=== PATIENT | female | born 1955 | race Caucasian/White ===

== ENCOUNTER → 2017-02-03 | Outpatient (CLI) | payer OTHER ==
--- NOTE | 2017-02-03 11:47 | DIAGNOSTIC IMAGING REPORT ---
CHEST 2 VIEWS ROUTINE HISTORY: 61 years-old Female COUGH acute cough. Initial exam. COMPARISON: None available. TECHNIQUE: Frontal and lateral views of the chest. FINDINGS: Cardiac silhouette is moderately enlarged. Left subclavian pacer device is noted with leads overlying the right ventricle and right atrial appendage. There is minimal atherosclerosis of the aorta. No overt pulmonary edema. No pneumothorax, pleural effusion or focal airspace consolidation. There is minimal subsegmental left basilar atelectasis. Surgical clips project over the epigastrium. Orthopedic anchor hardware is seen within the left shoulder. Fusion hardware of the lower cervical spine noted. IMPRESSION: Mild cardiomegaly and minimal left basilar subsegmental atelectasis without acute cardiopulmonary process. The above report was generated using voice recognition software. It may contain grammatical, syntax or spelling errors. Electronically signed by: Omar Rod M.D. 02/03/2017 11:46 AM Dictated Date/Time: 02/03/2017 11:44 AM
== END | disposition home or self-care (01) ==
LOC: C.RAD1850 11:28
PROVIDERS: ATTEND Family Medicine
DX: R05 Cough (principal); I51.7 Cardiomegaly; J98.11 Atelectasis

== ENCOUNTER 2017-04-08 08:06 | Emergency (ER) | payer OTHER ==
[2017-04-08 08:17] VITALS: Ht 165.1 cm
[2017-04-08] MEDS ORDERED: LEVO137T3 PO (08:45)
[2017-04-08] MEDS ORDERED: ATEN-173 PO (08:45)
[2017-04-08] MEDS ORDERED: APIX1TAB3 PO (08:45)
[2017-04-08] MEDS ORDERED: CLBPO15 TOP (08:45)
[2017-04-08] MEDS ORDERED: FRS/40 PO (08:45)
[2017-04-08] MEDS ORDERED: BACL10TA PO (08:45)
[2017-04-08] MEDS ORDERED: FLUO10CA48 PO (08:45)
[2017-04-08] MEDS ORDERED: PANT40TA PO (08:45)
[2017-04-08] MEDS ORDERED: ONDA4TAB46 PO (08:45)
[2017-04-08] MEDS ORDERED: GARL500C5 PO (08:45)
[2017-04-08] MEDS ORDERED: ONDANSETRON INJ 2 MG/ML 2 ML VIAL IV STA (09:06)
[2017-04-08] MEDS ORDERED: MoRPHine SULFATE 4 MG/ML 1 ML CARP\\VIAL IV STA (09:06)
[2017-04-08] MEDS ORDERED: GI COCKTAIL PO STA (09:06)
--- NOTE | 2017-04-08 09:47 | DIAGNOSTIC IMAGING REPORT ---
SINGLE VIEW CHEST CLINICAL HISTORY: Epigastric abdominal pain. FINDINGS: 2 AP, portable, upright chest radiographs are compared to study dated 02/03/2017. The examination is degraded by portable technique, large body habitus, and patient rotation. A 2-lead cardiac pacemaker is unchanged in position. The heart is enlarged and there is atherosclerotic calcification of the thoracic aorta. The pulmonary vasculature is mildly congested. There are trace pleural effusions. Bibasilar atelectasis is observed. No pneumothorax is seen. The skeletal structures are osteopenic. The bony thorax is grossly intact. Anchors are present in the left humeral head. Postoperative change is seen in the lower cervical spine. IMPRESSION: 1. Cardiomegaly and cardiac pacemaker with evidence of mild congestive failure. 2. Trace pleural effusions. Electronically signed by: Johnny Vigil M.D. 04/08/2017 9:45 AM Dictated Date/Time: 04/08/2017 9:44 AM
[2017-04-08 10:02] LABS: BASO % 0.5 %; BASO ABS # 0.03 K/uL (0-0.2); COMPLETE YES; HEMATOCRIT 35.4 % (37-47); IG% 0.3 %; LYMPH % 17.4 %; LYMPH ABS # 1.06 K/uL (1.2-3.4); MEAN CELL VOLUME 83.1 fL (80-100); MEAN CORPUSCULAR HEMOGLOBIN 24.6 pg (25-34); MEAN CORPUSCULAR HGB CONC 29.7 g/dl (32-36); MEAN PLATELET VOLUME 11.1 fL (7.4-10.4); MONO % 11.5 %; NEUT % 67.3 %; PLATELET COUNT 200 K/uL (130-400); RED BLOOD COUNT 4.26 M/uL (4.2-5.4); WHITE BLOOD COUNT 6.08 K/uL (4.8-10.8)
[2017-04-08 10:26] LABS: ALKALINE PHOSPHATASE 89 U/L (45-117); ALT/SGPT 14 U/L (12-78); AST/SGOT 19 U/L (15-37); BLOOD UREA NITROGEN 30 mg/dl (7-18); BUN/CREATININE RATIO 24.1 (10-20); CALCIUM 8.8 mg/dl (8.5-10.1); CARBON DIOXIDE 26 mmol/L (21-32); CHLORIDE 106 mmol/L (98-107); CREATININE 1.23 mg/dl (0.60-1.20); GLUCOSE 84 mg/dl (70-99); POTASSIUM 4.3 mmol/L (3.5-5.1); SODIUM 140 mmol/L (136-145)
--- NOTE | 2017-04-08 10:32 | DIAGNOSTIC IMAGING REPORT ---
ABDOMEN AND PELVIS CT WITHOUT CONTRAST CT DOSE: 1689.62 mGy.cm HISTORY: diffuse and pain TECHNIQUE: Multiaxial CT images of the abdomen and pelvis were performed without contrast. A dose lowering technique was utilized adhering to the principles of ALARA. COMPARISON STUDY: None. FINDINGS: Small right and trace left pleural effusions. Pacemaker wires are noted. No pneumoperitoneum. No pneumatosis. Old, healed left anterior rib fracture. There has been partial resection of the left lateral ninth rib. Skin thickening and moderate body wall edema most pronounced within the left flank. Suture material within the left lateral abdominal wall consistent with old postoperative change. The left kidney is surgically absent. A few small pockets of fluid seen within the left retroperitoneal space at the left nephrectomy bed and at the left omentum. Cholecystectomy. The unenhanced liver, spleen, right adrenal gland are unremarkable. There is mild edema at the socorro hepatis and adjacent to the pancreatic head. Mild right perinephric edema. No right-sided hydronephrosis. A 2.1 cm exophytic hypodense lesion within the upper pole the right kidney. This is indeterminate due to the lack of contrast but does not clearly represent a simple cyst. Moderate bladder wall thickening which is underdistended. The uterus is surgically absent. Mild mesenteric edema. Surgical clips within the retroperitoneum. No retroperitoneal lymphadenopathy. Suboptimal evaluation for bowel pathology due to the lack of intravenous and oral contrast. However, there is no definite bowel wall thickening or obstruction. Colonic diverticulosis. Trace perihepatic ascites. IMPRESSION: 1. Suboptimal evaluation for bowel pathology due to the lack of intravenous and oral contrast. However, there is no definite bowel wall thickening or obstruction. 2. Small right and trace left pleural effusions. There is also diffuse moderate body wall edema most pronounced within the left flank. 3. Postoperative changes consistent with prior left nephrectomy. Small pockets of fluid within the nephrectomy bed and along the left side of the omentum adjacent to the left lateral abdominal wall incision. This favors postoperative change. However, one month abdomen and pelvis CT with intravenous contrast is recommended to ensure resolution and to exclude the possibility of underlying soft tissue nodules.. 4. Mild edema at the socorro hepatis and surrounding the pancreatic head. This may be due to the patient's diffuse edematous state. However, recommend correlation with pancreatic enzymes to exclude the possibility of an underlying pancreatitis. 5. A 2.1 cm exophytic hypodense lesion within the upper pole the right kidney. This is incompletely characterize on this noncontrast study but does not clearly represent a simple cyst. Comparison to old studies or nonemergent renal ultrasound is recommended to exclude the less likely possibility of a renal mass. 6. Moderate bladder wall thickening. This could be due to underdistention. Recommend correlation with urinalysis. Electronically signed by: Lorenzo Dee M.D. 04/08/2017 10:30 AM Dictated Date/Time: 04/08/2017 10:19 AM
[2017-04-08] MEDS ORDERED: FUROSEMIDE 40 MG/4 ML VIAL IV STA (10:37)
[2017-04-08 11:24] VITALS: TEMP 36.7
[2017-04-08] MEDS ORDERED: LIDOCAINE HCL 2% VISC SOLN 20 ML UDC ONE (11:28)
[2017-04-08] MEDS ORDERED: ALUMINUM/MAGNESIUM SUSP 30 ML UDC ONE (11:28)
[2017-04-08] MEDS ORDERED: ONDANSETRON INJ 2 MG/ML 2 ML VIAL ONE (11:29)
[2017-04-08] MEDS ORDERED: MoRPHine SULFATE 4 MG/ML 1 ML CARP\\VIAL ONE (11:29)
[2017-04-08 11:33] LABS: URINE APPEARANCE CLEAR (CLEAR); URINE BILIRUBIN NEG (NEG); URINE COLOR DK YELLOW; URINE EPITHELIAL CELL AUTO >30 /lpf (0-5); URINE NITRITE NEG (NEG); UROBILINOGEN NEG (NEG)
[2017-04-08 11:35] LABS: MANUAL MICROSCOPIC REQUIRED? NO; REVIEW REQ? NO
[2017-04-08] MEDS ORDERED: ONDA4TAB65 PO (13:13)
[2017-04-08 13:30] VITALS: BP 122/71; PULSE 87; O2SAT 98
--- NOTE | 2017-04-08 15:24 | EMERGENCY ROOM VISIT NOTE ---
History Report prepared by Wanda: Rebeca Alcantara Under the Supervision of: Dr. Abiel Shearer D.O. First contact with patient: 08:35 Chief Complaint: ABDOMINAL PAIN Stated Complaint: STOMACH SPASMS Nursing Triage Summary: pt reports she has been having spasms and pain in abd .had echo on thursday. scheduled for colonoscopy on . feels nauseated and having pain, hard time breathing. has pacer. sx started 2 months ago has been getting tests no results yet. has cough also History of Present Illness The patient is a 61 year old female who presents to the Emergency Room with complaints of persistent diffuse abdominal pain that began two months ago. She currently rates her discomfort as an 8/10 in severity. The patient describes her pain as a spasm and cramping pain. She states that when her pain began two months ago she first had developed a cough, followed by nausea, and then her pain began. The patient states that she is scheduled for a scope on the 23 of April. She states that she had an echocardiogram on Thursday. Today, the patient reports increased pain with movement. The patient reports a history of an appendectomy, cholecystectomy, hysterectomy, and nephrectomy. She states that her last bowel movement was this morning. The patient states that she has a history of atrial fibrillation and notes that she has a pacemaker. She states that she is on Eloquis, but denies missing any dosages. The patient denies any previous NE. Today she notes shortness of breath. The patient denies headache, change in vision, fevers, chest pain, vomiting, diarrhea, pain with urination, and melena. Source of History: patient Onset: two months ago Position: abdomen (diffuse) Symptom Intensity: 8/10 Quality: cramping, other (spasm) Timing: other (persistent) Modifying Factors (Worsening): movement Associated Symptoms: + cough, + SOB, + nausea Review of Systems See HPI for pertinent positives & negatives. A total of 10 systems reviewed and were otherwise negative. Past Medical & Surgical Medical Problems: (1) Atrial fibrillation (2) Pacemaker Surgical Problems: (1) H/O: hysterectomy (2) History of appendectomy (3) History of nephrectomy (4) S/P cholecystectomy Family History No pertinent family history stated. Social History Smoking Status: Never Smoker Marital Status: Occupation Status: disabled Current/Historical Medications Scheduled Apixaban (Eliquis), 5 MG PO BID Atenolol (Tenormin), 25 MG PO DAILY Baclofen (Lioresal), 10 MG PO TID Clobetasol Propionate (Clobetasol Propionate), 1 APPLN TOP BID Fluoxetine (Prozac), 10 MG PO DAILY Furosemide (Lasix), 40 MG PO DAILY Garlic (Garlic), 1 CAP PO DAILY Levothyroxine Sodium (Levothyroxine Sodium), 1 TAB PO DAILY Ondansetron Hcl (Zofran), 4 MG PO TID Pantoprazole (Protonix), 40 MG PO DAILY Scheduled PRN Ondansetron Hcl (Zofran), 4 MG PO for Nausea Allergies Coded Allergies: Iodinated Diagnostic Agents (Unverified Allergy, Severe, ANAPHYLAXIS, ) Physical Exam Vital Signs Date Time Temp Pulse Resp B/P (MAP) Pulse Ox O2 Delivery O2 Flow Rate FiO2 04/08/17 13:30 87 18 122/71 98 04/08/17 12:16 89 100 Room Air 04/08/17 11:24 36.7 60 18 125/69 97 Room Air 04/08/17 08:41 60 04/08/17 08:17 36.4 63 18 129/74 98 Room Air Physical Exam GENERAL: Sitting up in bed, morbidly obese, disheveled, holding epigastric region, alert, well nourished, no distress, non-toxic EYE EXAM: normal conjunctiva. OROPHARYNX: no exudate, no erythema, lips, buccal mucosa, and tongue normal and mucous membranes are moist NECK: supple, no nuchal rigidity, no adenopathy, non-tender, unable to appreciate JVD LUNGS: Diminished breath sounds bilaterally. Normal chest wall mechanics HEART: Distant heart sounds, no murmurs, S1 normal and S2 normal ABDOMEN: abdomen soft, acutely tender in the epigastric region tracking down to umbilicus, normo-active bowel sounds, no masses, no rebound or guarding. UPPER EXTREMITIES: upper extremities are grossly normal. LOWER EXTREMITIES: Diffuse pitting edema NEURO EXAM: Normal sensorium, cranial nerves II-XII grossly intact, normal speech, no gross weakness of arms, no gross weakness of legs. Medical Decision & Procedures ER Provider Diagnostic Interpretation: Radiology results as stated below per my review and the radiologist's interpretation: SINGLE VIEW CHEST CLINICAL HISTORY: Epigastric abdominal pain. FINDINGS: 2 AP, portable, upright chest radiographs are compared to study dated 02/03/2017. The examination is degraded by portable technique, large body habitus, and patient rotation. A 2-lead cardiac pacemaker is unchanged in position. The heart is enlarged and there is atherosclerotic calcification of the thoracic aorta. The pulmonary vasculature is mildly congested. There are trace pleural effusions. Bibasilar atelectasis is observed. No pneumothorax is seen. The skeletal structures are osteopenic. The bony thorax is grossly intact. Anchors are present in the left humeral head. Postoperative change is seen in the lower cervical spine. IMPRESSION: 1. Cardiomegaly and cardiac pacemaker with evidence of mild congestive failure. 2. Trace pleural effusions. Electronically signed by: Johnny Vigil M.D. 04/08/2017 9:45 AM Dictated Date/Time: 04/08/2017 9:44 AM ABDOMEN AND PELVIS CT WITHOUT CONTRAST CT DOSE: 1689.62 mGy.cm HISTORY: diffuse and pain TECHNIQUE: Multiaxial CT images of the abdomen and pelvis were performed without contrast. A dose lowering technique was utilized adhering to the principles of ALARA. COMPARISON STUDY: None. FINDINGS: Small right and trace left pleural effusions. Pacemaker wires are noted. No pneumoperitoneum. No pneumatosis. Old, healed left anterior rib fracture. There has been partial resection of the left lateral ninth rib. Skin thickening and moderate body wall edema most pronounced within the left flank. Suture material within the left lateral abdominal wall consistent with old postoperative change. The left kidney is surgically absent. A few small pockets of fluid seen within the left retroperitoneal space at the left nephrectomy bed and at the left omentum. Cholecystectomy. The unenhanced liver, spleen, right adrenal gland are unremarkable. There is mild edema at the socorro hepatis and adjacent to the pancreatic head. Mild right perinephric edema. No right-sided hydronephrosis. A 2.1 cm exophytic hypodense lesion within the upper pole the right kidney. This is indeterminate due to the lack of contrast but does not clearly represent a simple cyst. Moderate bladder wall thickening which is underdistended. The uterus is surgically absent. Mild mesenteric edema. Surgical clips within the retroperitoneum. No retroperitoneal lymphadenopathy. Suboptimal evaluation for bowel pathology due to the lack of intravenous and oral contrast. However, there is no definite bowel wall thickening or obstruction. Colonic diverticulosis. Trace perihepatic ascites. IMPRESSION: 1. Suboptimal evaluation for bowel pathology due to the lack of intravenous and oral contrast. However, there is no definite bowel wall thickening or obstruction. 2. Small right and trace left pleural effusions. There is also diffuse moderate body wall edema most pronounced within the left flank. 3. Postoperative changes consistent with prior left nephrectomy. Small pockets of fluid within the nephrectomy bed and along the left side of the omentum adjacent to the left lateral abdominal wall incision. This favors postoperative change. However, one month abdomen and pelvis CT with intravenous contrast is recommended to ensure resolution and to exclude the possibility of underlying soft tissue nodules.. 4. Mild edema at the socorro hepatis and surrounding the pancreatic head. This may be due to the patient's diffuse edematous state. However, recommend correlation with pancreatic enzymes to exclude the possibility of an underlying pancreatitis. 5. A 2.1 cm exophytic hypodense lesion within the upper pole the right kidney. This is incompletely characterize on this noncontrast study but does not clearly represent a simple cyst. Comparison to old studies or nonemergent renal ultrasound is recommended to exclude the less likely possibility of a renal mass. 6. Moderate bladder wall thickening. This could be due to underdistention. Recommend correlation with urinalysis. Electronically signed by: Lorenzo Dee M.D. 04/08/2017 10:30 AM Dictated Date/Time: 04/08/2017 10:19 AM Laboratory Results 04/08/17 09:42 Red Blood Count 4.26, Mean Corpuscular Volume 83.1, Mean Corpuscular Hemoglobin 24.6, Mean Corpuscular Hemoglobin Concent 29.7, Mean Platelet Volume 11.1, Neutrophils (%) (Auto) 67.3, Lymphocytes (%) (Auto) 17.4, Monocytes (%) (Auto) 11.5, Eosinophils (%) (Auto) 3.0, Basophils (%) (Auto) 0.5, Neutrophils # (Auto ) 4.09, Lymphocytes # (Auto) 1.06, Monocytes # (Auto) 0.70, Eosinophils # (Auto ) 0.18, Basophils # (Auto) 0.03 04/08/17 09:42 Test 04/08/17 09:42 04/08/17 11:05 White Blood Count 6.08 K/uL (4.8-10.8) Red Blood Count 4.26 M/uL (4.2-5.4) Hemoglobin 10.5 g/dL (12.0-16.0) Hematocrit 35.4 % (37-47) Mean Corpuscular Volume 83.1 fL (80-100) Mean Corpuscular Hemoglobin 24.6 pg (25-34) Mean Corpuscular Hemoglobin Concent 29.7 g/dl (32-36) Platelet Count 200 K/uL (130-400) Mean Platelet Volume 11.1 fL (7.4-10.4) Neutrophils (%) (Auto) 67.3 % Lymphocytes (%) (Auto) 17.4 % Monocytes (%) (Auto) 11.5 % Eosinophils (%) (Auto) 3.0 % Basophils (%) (Auto) 0.5 % Neutrophils # (Auto) 4.09 K/uL (1.4-6.5) Lymphocytes # (Auto) 1.06 K/uL (1.2-3.4) Monocytes # (Auto) 0.70 K/uL (0.11-0.59) Eosinophils # (Auto) 0.18 K/uL (0-0.5) Basophils # (Auto) 0.03 K/uL (0-0.2) RDW Standard Deviation 48.9 fL (36.4-46.3) RDW Coefficient of Variation 16.2 % (11.5-14.5) Immature Granulocyte % (Auto) 0.3 % Immature Granulocyte # (Auto) 0.02 K/uL (0.00-0.02) Anion Gap 8.0 mmol/L (3-11) Estimated GFR () 54.1 Estimated GFR (Non- 46.6 BUN/Creatinine Ratio 24.1 (10-20) Calcium Level 8.8 mg/dl (8.5-10.1) Total Bilirubin 1.0 mg/dl (0.2-1) Direct Bilirubin 0.4 mg/dl (0-0.2) Aspartate Amino Transf (AST/SGOT) 19 U/L (15-37) Alanine Aminotransferase (ALT/SGPT) 14 U/L (12-78) Alkaline Phosphatase 89 U/L (45-117) Troponin I < 0.015 ng/ml (0-0.045) Total Protein 6.7 gm/dl (6.4-8.2) Albumin 3.5 gm/dl (3.4-5.0) Lipase 129 U/L (73-393) Urine Color DK YELLOW Urine Appearance CLEAR (CLEAR) Urine pH 5.0 (4.5-7.5) Urine Specific Brea 1.030 (1.000-1.030) Urine Protein 1+ (NEG) Urine Glucose (UA) NEG (NEG) Urine Ketones NEG (NEG) Urine Occult Blood NEG (NEG) Urine Nitrite NEG (NEG) Urine Bilirubin NEG (NEG) Urine Urobilinogen NEG (NEG) Urine Leukocyte Esterase TRACE (NEG) Urine WBC (Auto) 1-5 /hpf (0-5) Urine RBC (Auto) 0-4 /hpf (0-4) Urine Hyaline Casts (Auto) 1-5 /lpf (0-5) Urine Epithelial Cells (Auto) >30 /lpf (0-5) Urine Bacteria (Auto) NEG (NEG) Laboratory results per my review. Medications Administered Medications (Trade) Dose Ordered Sig/Deondre Route Start Time Stop Time Status Last Admin Dose Admin Morphine Sulfate (MoRPHine SULFATE INJ) 4 mg NOW STAT IV 04/08/17 09:06 04/08/17 09:07 DC 04/08/17 11:40 4 MG Ondansetron HCl (Zofran Inj) 4 mg NOW STAT IV 04/08/17 09:06 04/08/17 09:07 DC 04/08/17 11:41 4 MG Miscellaneous Medication (Gi Cocktail) 24 ml NOW STAT PO 04/08/17 09:06 04/08/17 09:07 DC 04/08/17 11:41 24 ML Furosemide (Lasix Inj) 40 mg NOW STAT IV 04/08/17 10:37 04/08/17 10:38 DC 04/08/17 11:42 40 MG ECG Indication: SOB/dyspnea Rate (beats per minute): 60 Rhythm: other (ventricularly paced) Findings: RBBB, left axis deviation Comparison ECG Date: 03/19/17 Change: no significant change ED Course ED COURSE: Vital signs were reviewed and showed normal vitals The patients medical record was reviewed The above diagnostic studies were performed and reviewed. ED treatments and interventions as stated above. 0855: The patient was evaluated in room A3. A complete history and physical examination was performed. 0906: Ordered GI Cocktail 24 ml PO, Zofran Inj 4 mg IV, Morphine Sulfate 4 mg IV. 1037: Ordered Lasix Inj 40 mg IV. 1208: I updated the patient and she is resting comfortably. I updated her at this time. We are going to obtain imaging, labs and EKGs from her PCP's office. 1229: I reevaluated the patient and she is resting comfortably and notes that she is breathing much easier. 1310: Upon reevaluation, the patient is resting comfortably.I discussed my findings with the patient and she understands and agrees with the treatment plan. Based on the patients age, coexisting illnesses, exam and lab findings the decision to treat as an outpatient was made. The patient remained stable while under my care. The patient appeared well at the time of discharge. 1325: I spoke to a nurse from the [facility]. The patient's echo showed no change in EF, grade 3 diastolic dysfunction, and no LV wall motion abnormalities. Medical Decision Differential diagnoses includes but is not limited to gastritis, peptic ulcer disease, GERD, gallbladder disease, pancreatitis, small bowel obstruction, acute coronary syndrome, pericarditis, ischemic bowel, irritable bowel disease, irritable bowel syndrome, appendicitis, diverticulitis, malignancy, hernia, urinary tract infection, torsion, /ectopic (if female), perforation, trauma, infectious. Patient is a 61-year-old female who presents to ER for epigastric abdominal pain which has been present for the past 2 months. She does admits to associated cough. She has had this before in the past. She is followed with GI. She recently just saw a developmental writing instructor. She is new to the area. Reviewed/ discussed recent echo with cardiology's nurse. This appears to be unchanged per the report. On her exam she does have CHF. She does take Lasix but has decreased her dose back to what was normal as was increased by cardiology for a short period of time. CBC all BMP, LFTs, bilirubin, lipase and troponin were all negative. UA was negative. Chest x-ray supports mild pleural effusions. CT of the abdomen and pelvis shows no acute pathology. She does take atenolol inhibitor. I did not explore PEs because of this as she did admit to some mild shortness of breath which has been persistent for a prolonged period of time. This is not consistent with ACS. EKG was unchanged from previous in March. She inability and did not drop her pulse ox. I gave her an extra dose of IV Lasix. Discussed follow-up with her cardiology nurse. Patient was feeling slightly better as her stomach pain improved with the GI cocktail and narcotics. She was discharged with Zofran to follow-up with cardiology and PCP. Discussed with Pt concerning signs and symptoms to watch out for. Pt was instructed to follow up with their PCP and discussed with the patient their option to return to the ED at anytime for persistent or worsening symptoms. The appropriate anticipatory guidance and out-patient management, including indications for return to the emergency department, were explained at length to the patient and understood. Medication Reconcilliation Current Medication List: was personally reviewed by me Blood Pressure Screening Patient's blood pressure: Normal blood pressure Blood pressure disposition: Did not require urgent referral Impression Primary Impression: Epigastric abdominal pain Additional Impression: CHF (congestive heart failure) Scribe Attestation The scribe's documentation has been prepared under my direction and personally reviewed by me in its entirety. I confirm that the note above accurately reflects all work, treatment, procedures, and medical decision making performed by me. Departure Information Dispostion Home / Self-Care Prescriptions Ondansetron Hcl (ZOFRAN) 4 Mg Tab 4 MG PO TID for Nausea, #30 TAB Prov: Abiel Shearer, 04/08/17 Referrals David Monet M.D. (PCP) Forms Call Back Authorization, HOME CARE DOCUMENTATION FORM, IMPORTANT VISIT INFORMATION Patient Instructions Abdominal Pain - [facility], ED CHF General, [facility] Additional Instructions Please follow up with your primary care doctor with in the next 24 hours. Any worsening of your symptoms, please return to the ED immediately. This includes any fevers greater than 100.4, worsening pain, chest pain, shortness breath, persistent nausea, vomiting, unable to eat or drink, or any other concerning signs or symptoms from your standpoint. Please take your normal dose of Lasix twice a day for the next 3 days. Please contact your PCP and developmental writing instructor for additional instructions. This take Zofran as prescribed for nausea. Problem Qualifiers Additional Impression: CHF (congestive heart failure) Congestive heart failure type: unspecified congestive heart failure type Congestive heart failure chronicity: unspecified congestive heart failure chronicity Qualified Codes: I50.9 - Heart failure, unspecified
== END 2017-04-08 13:28 | disposition home or self-care (01) ==
LOC: C.EDB 08:09 → C.EDA 13:28
DX: R10.13 Epigastric pain (principal); I50.9 Heart failure, unspecified; I48.91 Unspecified atrial fibrillation; Z90.5 Acquired absence of kidney; Z90.49 Acquired absence of other specified parts of digestive tract; Z90.710 Acquired absence of both cervix and uterus; Z90.89 Acquired absence of other organs; Z95.0 Presence of cardiac pacemaker; Z79.01 Long term (current) use of anticoagulants

== ENCOUNTER 2019-02-26 07:35 | Inpatient (IN) ==
--- NOTE | 2019-02-26 08:38 | Emergency Department Note ---
ED Visit Note This patient was seen in concert with Dr. Martin and we discussed and agreed upon the history, physical, assessment, and plan. See attending's note for details. . Resident Activity Tracking Resident Involvement: Resident Care Provided Care Provided: Adult ED
--- NOTE | 2019-02-26 08:49 | XRay Report ---
XR chest 1V portable CLINICAL HISTORY: Dyspnea dyspnea COMPARISON STUDY: 04/08/2017 FINDINGS: Mild stable cardiomegaly. Permanent cardiac pacemaker lead. Battery pack has been removed. Chronic pleural and parenchymal changes left base. Lungs otherwise appear clear. IMPRESSION: Mild stable cardiomegaly. No acute process. The above report was generated using voice recognition software. It may contain grammatical, syntax or spelling errors. Electronically signed by: Tan Fernández M.D. 02/26/2019 8:47 AM
[2019-02-26 09:18] LABS: Basophils # (auto) 0.01 K/uL (0-0.2); Basophils % (auto) 0.2 %; Eosinophils # (auto) 0.19 K/uL (0-0.5); Eosinophils % (auto) 3.7 %; Hematocrit (blood only) 31.9 % (37-47); Immature Granulocytes # (auto) 0.01 K/uL (0.00-0.02); Immature Granulocytes % (auto) 0.2 %; Lymphocytes # (auto) 0.73 K/uL (1.2-3.4); Lymphocytes % (auto) 14.4 %; Mean Corpuscular Hemoglobin 25.8 pg (25-34); Mean Corpuscular Hgb Conc 31.3 g/dL (32-36); Mean Corpuscular Volume 82.4 fL (80-100); Mean Platelet Volume 10.3 fL (7.4-10.4); Monocytes # (auto) 0.57 K/uL (0.11-0.59); Monocytes % (auto) 11.2 %; Neutrophils # (auto) 3.57 K/uL (1.4-6.5); Neutrophils % (auto) 70.3 %; Platelet Count 191 K/uL (130-400); RDW Coefficient of Variation 16.3 % (11.5-14.5); RDW Standard Deviation 48.4 fL (36.4-46.3); Red Blood Count 3.87 M/uL (4.2-5.4); White Blood Count 5.08 K/uL (4.8-10.8)
[2019-02-26 09:23] LABS: Base Excess VBG 4.3 mEq/L; HCO3 VBG 29 mmol/L; PCO2 VBG 46 mmHg (38-50); PO2 VBG 27 mmHg; pH VBG 7.42 (7.36-7.41)
[2019-02-26 09:29] LABS: Oxygen Saturation VBG < 60.0 %
[2019-02-26 09:38] LABS: Appearance Urine Clear (Clear); Bilirubin Urine Negative (Negative); Blood Urine Trace (Negative); Color Urine Yellow; Glucose Urine UA Negative (Negative); Ketones Urine Negative (Negative); Leukocyte Esterase Urine Trace (Negative); Nitrite Urine Negative (Negative); Specific Gravity Urine <= 1.005 (1.000-1.030); Urobilinogen Urine Negative (Negative); pH Urine 7.5 (4.5-7.5)
[2019-02-26 09:41] LABS: Alanine Aminotransferase 10 U/L (12-78); Albumin Level 3.6 gm/dl (3.4-5.0); Aspartate Aminotransferase 15 U/L (15-37); BUN Creatinine Ratio 14.1 (10-20); Blood Urea Nitrogen 18 mg/dl (7-18); Calcium 9.1 mg/dl (8.5-10.1); Carbon Dioxide 30 mmol/L (21-32); Chloride 104 mmol/L (98-107); Creatinine Clr Calc Pharmacy 61.1 ml/min; Est GFR (African American) 52.3; Est GFR (Non-African American) 45.1; Glucose 87 mg/dl (70-99); Magnesium 2.4 mg/dl (1.8-2.4); Potassium 3.7 mmol/L (3.5-5.1); Sodium 139 mmol/L (136-145)
[2019-02-26 09:41] LABS: Protein Urine Negative (Negative)
[2019-02-26 09:42] LABS: Sulfosalicylic Acid Urine Negative (Negative)
[2019-02-26 09:45] LABS: Alkaline Phosphatase 103 U/L (45-117); Bilirubin,Total 1.6 mg/dl (0.2-1); Globulin 3.7 gm/dl (2.5-4.0); NT Pro B Type Natriuretic Pept 2990 pg/ml (0-900); Phosphorus 3.6 mg/dl (2.5-4.9); Total Protein 7.3 gm/dl (6.4-8.2); Troponin I < 0.015 ng/ml (0-0.045)
[2019-02-26 09:53] LABS: Bacteria Urine Negative (Negative); Epithelial Cell Urine 0-5 /lpf (0-5); RBC Urine 0-4 /hpf (0-4); WBC Urine 0-5 /hpf (0-5)
[2019-02-26] MEDS ORDERED: BUMETANIDE 1 MG in SYRINGE 0 ML IV SCH (10:00)
--- NOTE | 2019-02-26 10:51 | Emergency Department Note ---
Entered by Maria Elena Alcocer acting as a scribe for History of Present Illness General Chief complaint: Shortness of Breath/Dyspnea Stated complaint: SOB,NAUSEA,DIZZY STOMACH CRAMPS Time Seen by Provider: 02/26/19 07:49 Source: patient History of Present Illness Onset (ago): week(s) (several) Location: chest Pain Consistency: + other (worsening) Maximum Pain Intensity: 6 Quality: + other (shortness of breath) Relieved By: + rest Exacerbated By: + movement Associated symptoms: + nausea/vomiting (positive nausea; negative vomiting ) and + other (positive dizziness; positive turning blue with standing and walking; positive abdominal cramping; positive diarrhea) The patient is a 63 year old female who presents to the Emergency Room with complaints of worsening shortness of breath that began several weeks prior to arrival. The patient states that during this time she has had some dizziness as well. She reports that her symptoms are exacerbated with movement, and relieved with rest. The patient states that this morning was her worst day of symptoms, and states that she has been turning blue with standing and walking around. The patient reports abdominal cramping, nausea, and diarrhea over the past two days. The patient states that she had a pacemaker placed in 2004 and replaced 5 months ago. She states that she had an echo performed several days ago. She denies the use of alcohol and cigarettes. Home Medications Home Medications Medication Instructions Recorded Confirmed Type apixaban 5 mg tablet 5 mg PO BID 12/10/18 02/26/19 History fluoxetine 10 mg capsule 10 mg PO QAM 12/10/18 02/26/19 History levothyroxine 137 mcg tablet 137 mcg PO QAM 12/10/18 02/26/19 History pantoprazole 40 mg tablet,delayed 40 mg PO QAM 12/10/18 02/26/19 History release acetaminophen 500 mg capsule 1,000 mg PO HS PRN cap 12/13/18 02/26/19 History multivitamin tablet 1 tab PO DAILY 12/13/18 02/26/19 History omega-3 fatty acids 1,250 mg 1,250 mg PO QAM 12/13/18 02/26/19 History capsule spironolactone 25 mg tablet 12.5 mg PO QAM tab 12/13/18 02/26/19 History CPAP Machine 02/26/19 02/26/19 History baclofen 10 mg PO HS 02/26/19 02/26/19 History bumetanide 1 mg PO AMPM 02/26/19 02/26/19 History metoprolol succinate [Toprol XL] 25 mg PO QAM 02/26/19 02/26/19 History Allergies Allergy/AdvReac Type Severity Reaction Status Date / Time Iodinated Contrast Media Allergy Severe ANAPHYLAXIS Unverified 02/26/19 08:51 amiodarone Allergy Intermediate increased Unverified 02/26/19 08:51 liver values tramadol Allergy Intermediate Hallucinati Unverified 02/26/19 08:51 ng adhesive tape Allergy Mild Rash Unverified 02/26/19 08:51 Past Med/Surg History Medical History Cancer of left kidney Acid reflux Anemia Arthritis Atrial fibrillation Cholecystitis Congestive heart failure Fibromyalgia History of hysterectomy done in 1983 Hyperlipidemia Pacemaker placed in 2004 Stomach ulcer Surgical History History of nephrectomy, left 2000 (precancerous cyst) History of appendectomy 1984 (right ovary preserved) History of cholecystectomy 1984 History of left knee surgery 2017 History of neck surgery cervical spine C5 and C6, 2003 History of permanent cardiac pacemaker placement placed in 2004, received wireless pacemaker in 2019 History of shoulder surgery L shoulder, 1997, 2000, 2002 S/P arthroscopic knee surgery right knee Family History Father Alcohol abuse Heart disease Hypertension Myocardial infarction Mother Colorectal cancer Gallbladder disease Brother Alcohol abuse Heart disease Hypertension Myocardial infarction Aunt Breast cancer Sister Colorectal cancer Social History Preferred Language: Danish Communication Ability: Effective Visual Impairment: No Limitations Hearing Ability: Normal Used Car [employer] Required: No Beliefs That Will Affect Care: None marital status: Legally Current Living Situation: Family Current Living Situation Comment: lives with friend at her home current occupational status: retired and disabled Feels Safe at Home: Yes Smoking Status: Never smoker Hx Alcohol Use: No Hx Substance Use: No Dental Care, Regularly: Yes Physical Activity Frequency: Other Physical Activity Frequency Comment: walks when she is able, activity is limited by physical condition Seatbelt Use: always Sunscreen Use: Yes Review of Systems See HPI for pertinent positives & negatives. and A total of 10 systems reviewed and were otherwise negative Physical Exam Vital Signs Vital Signs - 24 hr 02/26/19 07:39 02/26/19 07:41 02/26/19 09:19 Temperature 36.4 C L Temperature Source Oral Sepsis Recent Fever Within 48 Hours No Sepsis Action Taken by Nursing No Action Required Pulse Rate 70 Pulse Rate from SpO2 Sensor 60 Pulse Rhythm Regular Pulse Strength Normal Respiratory Rate 20 22 Respiratory Effort / Characteristics Non-Labored Spontaneous Respiratory Depth Normal Normal Respiratory Pattern Regular Regular Blood Pressure 112/75 120/64 Blood Pressure Mean 87 82 Blood Pressure Position Sitting Pulse Oximetry 98 95 Oxygen Delivery Method Room Air Room Air 02/26/19 09:29 02/26/19 09:30 02/26/19 10:01 Temperature Temperature Source Sepsis Recent Fever Within 48 Hours Sepsis Action Taken by Nursing Pulse Rate 64 61 85 Pulse Rate from SpO2 Sensor 62 61 85 Pulse Rhythm Pulse Strength Respiratory Rate 16 17 22 Respiratory Effort / Characteristics Respiratory Depth Respiratory Pattern Blood Pressure Blood Pressure Mean Blood Pressure Position Pulse Oximetry 95 95 96 Oxygen Delivery Method 02/26/19 10:10 02/26/19 10:30 Temperature Temperature Source Sepsis Recent Fever Within 48 Hours Sepsis Action Taken by Nursing Pulse Rate 61 62 Pulse Rate from SpO2 Sensor 61 62 Pulse Rhythm Pulse Strength Respiratory Rate 17 21 Respiratory Effort / Characteristics Respiratory Depth Respiratory Pattern Blood Pressure 112/72 108/68 Blood Pressure Mean 85 81 Blood Pressure Position Pulse Oximetry 97 96 Oxygen Delivery Method GENERAL: Awake, alert, chronically ill-appearing, in no distress HENT: Normocephalic, atraumatic. Oropharynx with dry mucous membranes. Scant perioral cyanosis. EYES: Normal conjunctiva. Sclera non-icteric. EOMI. No nystamgus. PEARRL. NECK: Supple. No nuchal rigidity. FROM. Mild JVD. RESPIRATORY: Diminished breath sounds at the bases otherwise clear. CARDIAC: Regular rate, normal rhythm. Extremities warm and well perfused. Pulses equal. ABDOMEN: Soft, non-distended. No tenderness to palpation. No rebound or guarding. No masses. RECTAL: Deferred. MUSCULOSKELETAL: Chest examination reveals no tenderness. The back is symmetri macy on inspection without obvious abnormality. There is no CVA tenderness to palpation. No joint edema. LOWER EXTREMITIES: Calves are equal size bilaterally and non-tender. 2+ bilateral lower extremity edema. No discoloration. NEURO: Normal sensorium. No sensory or motor deficits noted. SKIN: No rash or jaundice noted. Course 0756: The patient was seen and evaluated by resident Maximino Ulrich. 0850: Past medical records reviewed. The patient was evaluated in room B8. A complete history and physical exam was performed. 1018: The resident updated the patient on the treatment plan and the need for further evaluation. 1030: The resident discussed the case with Dr. Cueto-[facility] Hopsitalist who accepts the patient for further evaluation. 1031: I talked to [employer] who state that the patient's pacemaker is functioning properly. Administered Medications Acetaminophen (Tylenol) 650 mg PO Q4H PRN PRN Reason: pain/fever Stop: 03/28/19 11:55 Last Admin: 02/26/19 23:05 Dose: 650 mg Documented by: [id number] Admin: 02/26/19 15:32 Dose: 650 mg Documented by: [id number] Apixaban (Eliquis) 5 mg PO BID KARINA Stop: 03/28/19 20:59 Last Admin: 02/26/19 19:50 Dose: 5 mg Documented by: [id number] Baclofen (Lioresal) 10 mg PO HS KARINA Stop: 03/28/19 20:59 Last Admin: 02/26/19 19:51 Dose: 10 mg Documented by: [id number] Bumetanide 1 mg/ Syringe 4 mls @ 4 mls/min IV DAILY@0900,1700 KARINA Stop: 03/28/19 16:59 Last Admin: 02/26/19 15:32 Dose: 4 mls/min Documented by: [id number] Discontinued Medications Diphenhydramine HCl (Benadryl) 25 mg IV NOW STA Stop: 02/26/19 19:43 Last Admin: 02/26/19 19:55 Dose: 25 mg Documented by: [id number] Bumetanide 1 mg/ Syringe 4 mls @ 4 mls/min IV NOW KARINA Stop: 03/28/19 09:59 Last Admin: 02/26/19 11:22 Dose: 4 mls/min Documented by: [id number] Medical Decision Making Differential Diagnosis Differential diagnoses includes but is not limited to pneumonia, bronchitis, COPD/Asthma exacerbation, pneumothorax, pulmonary embolism, congestive heart failure, acute coronary syndrome Medical Records Attestation: I reviewed the patient's medical records. Home Medications Current Medication List: was personally reviewed by me Laboratory Data Attestation: I reviewed the patient's lab results. Result diagrams: 02/26/19 09:01 02/26/19 09:01 Lab Results 02/26/19 02/26/19 02/26/19 Range/Units 09:01 09:01 09:01 WBC 5.08 (4.8-10.8) K/uL RBC 3.87 L (4.2-5.4) M/uL Hgb 10.0 L (12.0-16.0) g/dL Hct 31.9 L (37-47) % MCV 82.4 (80-100) fL MCH 25.8 (25-34) pg MCHC 31.3 L (32-36) g/dL RDW Std Deviation 48.4 H (36.4-46.3) fL RDW Coeff of Sudheer 16.3 H (11.5-14.5) % Plt Count 191 (130-400) K/uL MPV 10.3 (7.4-10.4) fL Immature Gran % (Auto) 0.2 % Neut % (Auto) 70.3 % Lymph % (Auto) 14.4 % Piatt % (Auto) 11.2 % Eos % (Auto) 3.7 % Baso % (Auto) 0.2 % Immature Gran # (Auto) 0.01 (0.00-0.02) K/uL Neut # (Auto) 3.57 (1.4-6.5) K/uL Lymph # (Auto) 0.73 L (1.2-3.4) K/uL Piatt # (Auto) 0.57 (0.11-0.59) K/uL Eos # (Auto) 0.19 (0-0.5) K/uL Baso # (Auto) 0.01 (0-0.2) K/uL VBG pH 7.42 H (7.36-7.41) VBG pCO2 46 (38-50) mmHg VBG pO2 27 mmHg VBG HCO3 29 mmol/L VBG O2 Saturation < 60.0 % VBG Base Excess 4.3 mEq/L Carboxyhemoglobin % THgb Methemoglobin (0.0-1.5) % Barometric Pressure 734.3 mm/Hg Sodium 139 (136-145) mmol/L Potassium 3.7 (3.5-5.1) mmol/L Chloride 104 (98-107) mmol/L Carbon Dioxide 30 (21-32) mmol/L Anion Gap 5.0 (3-11) BUN 18 (7-18) mg/dl Creatinine 1.25 H (0.6-1.2) mg/dl Est Cr Clr Drug Dosing 61.1 ml/min Est GFR ( Amer) 52.3 Est GFR (Non-Af Amer) 45.1 BUN/Creatinine Ratio 14.1 (10-20) Glucose 87 (70-99) mg/dl Calcium 9.1 (8.5-10.1) mg/dl Phosphorus 3.6 (2.5-4.9) mg/dl Magnesium 2.4 (1.8-2.4) mg/dl Total Bilirubin 1.6 H (0.2-1) mg/dl AST 15 (15-37) U/L ALT 10 L (12-78) U/L Alkaline Phosphatase 103 (45-117) U/L Troponin I < 0.015 (0-0.045) ng/ml NT-Pro-B Natriuret Pep 2990 H (0-900) pg/ml Total Protein 7.3 (6.4-8.2) gm/dl Albumin 3.6 (3.4-5.0) gm/dl Globulin 3.7 (2.5-4.0) gm/dl Albumin/Globulin Ratio 1.0 (0.9-2) Urine Color Urine Appearance (Clear) Urine pH (4.5-7.5) Ur Specific Warren (1.000-1.030) Urine Protein (Negative) Urine Glucose (UA) (Negative) Urine Ketones (Negative) Urine Blood (Negative) Urine Nitrite (Negative) Urine Bilirubin (Negative) Urine Urobilinogen (Negative) Ur Leukocyte Esterase (Negative) Urine RBC (0-4) /hpf Urine WBC (0-5) /hpf Ur Epithelial Cells (0-5) /lpf Urine Bacteria (Negative) 02/26/19 02/26/19 02/26/19 Range/Units 09:21 10:20 10:20 WBC (4.8-10.8) K/uL RBC (4.2-5.4) M/uL Hgb (12.0-16.0) g/dL Hct (37-47) % MCV (80-100) fL MCH (25-34) pg MCHC (32-36) g/dL RDW Std Deviation (36.4-46.3) fL RDW Coeff of Sudheer (11.5-14.5) % Plt Count (130-400) K/uL MPV (7.4-10.4) fL Immature Gran % (Auto) % Neut % (Auto) % Lymph % (Auto) % Piatt % (Auto) % Eos % (Auto) % Baso % (Auto) % Immature Gran # (Auto) (0.00-0.02) K/uL Neut # (Auto) (1.4-6.5) K/uL Lymph # (Auto) (1.2-3.4) K/uL Piatt # (Auto) (0.11-0.59) K/uL Eos # (Auto) (0-0.5) K/uL Baso # (Auto) (0-0.2) K/uL VBG pH (7.36-7.41) VBG pCO2 (38-50) mmHg VBG pO2 mmHg VBG HCO3 mmol/L VBG O2 Saturation % VBG Base Excess mEq/L Carboxyhemoglobin 0.2 % THgb Methemoglobin 3.1 H (0.0-1.5) % Barometric Pressure mm/Hg Sodium (136-145) mmol/L Potassium (3.5-5.1) mmol/L Chloride (98-107) mmol/L Carbon Dioxide (21-32) mmol/L Anion Gap (3-11) BUN (7-18) mg/dl Creatinine (0.6-1.2) mg/dl Est Cr Clr Drug Dosing ml/min Est GFR ( Amer) Est GFR (Non-Af Amer) BUN/Creatinine Ratio (10-20) Glucose (70-99) mg/dl Calcium (8.5-10.1) mg/dl Phosphorus (2.5-4.9) mg/dl Magnesium (1.8-2.4) mg/dl Total Bilirubin (0.2-1) mg/dl AST (15-37) U/L ALT (12-78) U/L Alkaline Phosphatase (45-117) U/L Troponin I (0-0.045) ng/ml NT-Pro-B Natriuret Pep (0-900) pg/ml Total Protein (6.4-8.2) gm/dl Albumin (3.4-5.0) gm/dl Globulin (2.5-4.0) gm/dl Albumin/Globulin Ratio (0.9-2) Urine Color Yellow Urine Appearance Clear (Clear) Urine pH 7.5 (4.5-7.5) Ur Specific Warren <= 1.005 (1.000-1.030) Urine Protein Negative (Negative) Urine Glucose (UA) Negative (Negative) Urine Ketones Negative (Negative) Urine Blood Trace H (Negative) Urine Nitrite Negative (Negative) Urine Bilirubin Negative (Negative) Urine Urobilinogen Negative (Negative) Ur Leukocyte Esterase Trace H (Negative) Urine RBC 0-4 (0-4) /hpf Urine WBC 0-5 (0-5) /hpf Ur Epithelial Cells 0-5 (0-5) /lpf Urine Bacteria Negative (Negative) 02/26/19 Range/Units 10:20 WBC (4.8-10.8) K/uL RBC (4.2-5.4) M/uL Hgb (12.0-16.0) g/dL Hct (37-47) % MCV (80-100) fL MCH (25-34) pg MCHC (32-36) g/dL RDW Std Deviation (36.4-46.3) fL RDW Coeff of Sudheer (11.5-14.5) % Plt Count (130-400) K/uL MPV (7.4-10.4) fL Immature Gran % (Auto) % Neut % (Auto) % Lymph % (Auto) % Piatt % (Auto) % Eos % (Auto) % Baso % (Auto) % Immature Gran # (Auto) (0.00-0.02) K/uL Neut # (Auto) (1.4-6.5) K/uL Lymph # (Auto) (1.2-3.4) K/uL Piatt # (Auto) (0.11-0.59) K/uL Eos # (Auto) (0-0.5) K/uL Baso # (Auto) (0-0.2) K/uL VBG pH (7.36-7.41) VBG pCO2 (38-50) mmHg VBG pO2 mmHg VBG HCO3 mmol/L VBG O2 Saturation % VBG Base Excess mEq/L Carboxyhemoglobin Cancelled % THgb Methemoglobin (0.0-1.5) % Barometric Pressure mm/Hg Sodium (136-145) mmol/L Potassium (3.5-5.1) mmol/L Chloride (98-107) mmol/L Carbon Dioxide (21-32) mmol/L Anion Gap (3-11) BUN (7-18) mg/dl Creatinine (0.6-1.2) mg/dl Est Cr Clr Drug Dosing ml/min Est GFR ( Amer) Est GFR (Non-Af Amer) BUN/Creatinine Ratio (10-20) Glucose (70-99) mg/dl Calcium (8.5-10.1) mg/dl Phosphorus (2.5-4.9) mg/dl Magnesium (1.8-2.4) mg/dl Total Bilirubin (0.2-1) mg/dl AST (15-37) U/L ALT (12-78) U/L Alkaline Phosphatase (45-117) U/L Troponin I (0-0.045) ng/ml NT-Pro-B Natriuret Pep (0-900) pg/ml Total Protein (6.4-8.2) gm/dl Albumin (3.4-5.0) gm/dl Globulin (2.5-4.0) gm/dl Albumin/Globulin Ratio (0.9-2) Urine Color Urine Appearance (Clear) Urine pH (4.5-7.5) Ur Specific Warren (1.000-1.030) Urine Protein (Negative) Urine Glucose (UA) (Negative) Urine Ketones (Negative) Urine Blood (Negative) Urine Nitrite (Negative) Urine Bilirubin (Negative) Urine Urobilinogen (Negative) Ur Leukocyte Esterase (Negative) Urine RBC (0-4) /hpf Urine WBC (0-5) /hpf Ur Epithelial Cells (0-5) /lpf Urine Bacteria (Negative) Imaging Data Radiologist's Impression: Radiology results as stated below per my review and the radiologist's interpretation: XR chest 1V portable CLINICAL HISTORY: Dyspnea dyspnea COMPARISON STUDY: 04/08/2017 FINDINGS: Mild stable cardiomegaly. Permanent cardiac pacemaker lead. Battery pack has been removed. Chronic pleural and parenchymal changes left base. Lungs otherwise appear clear. IMPRESSION: Mild stable cardiomegaly. No acute process. The above report was generated using voice recognition software. It may contain grammatical, syntax or spelling errors. Electronically signed by: Tan Fernández M.D. 02/26/2019 8:47 AM ECG Data Attestation: I personally reviewed and interpreted this ECG as follows: Indication: SOB/dyspnea Rate (beats per minute): 66 Rhythm: other (v-paced) Findings: no PAC, no PVC, no ST depression, no ST elevation, no acute ischemic change and no ectopy Blood Pressure Blood Pressure Findings: Normal blood pressure MDM Narrative The patient is a pleasant 63-year-old woman with a past medical history of A. fib on Eliquis, CHF on Bumex who presents emergency department with worsening shortness of breath with cyanosis of her lips and fingers intermittently that is provoked by lying supine as well as with exertion per hpi. On arrival patient is chronically ill-appearing but no acute distress, afebrile stable vital signs. On exam the patient exhibits mild perioral cyanosis although her oxygen saturation is 95% on room air. She has diminished breath sounds at the bases but is otherwise clear. She has 2+ bilateral lower extremity edema which she r eports is improved for her. EKG demonstrates paced rhythm without overt acute ischemia. Chest x-ray demonstrates cardiomegaly with chronic pleural and parenchymal changes of the left lung base. WBC within normal limits. H/H 10/31.9 within prior range of values. Platelets within normal limits. VBG unremarkable with CO2 within normal limits. Carboxyhemoglobin and methemoglobin ordered and pending given the patient's perioral cyanosis but with normal O2 saturation. Chemistry without acidosis. Creatinine 1.25 within prior range of values. LFTs unremarkable. Troponin negative/undetectable. BNP 2900 without prior values for comparison. UA without infection. Certainly given the patien t's exam and elevated BNP symptoms likely have a component of volume overload. Patient was ordered for IV Bumex. Given her symptoms of exertional dyspnea and orthopnea it reasonable to admit the patient for further management. Resident, Dr. Maximino Ulrich, discussed the case with Dr. Cueto, [facility] [place] who evaluate the patient for admission. Of note, subsequent methemoglobin resulting at 3.1 which would explain the patient's perioral cyanosis. However unclear trigger for this episode. Patient denies any new medications or supplements. She denies any recent exposures. Admitting team updated and aware. Given unclear etiology to her elevated methemoglobinemia and that she is clinically stable, no indication for emergent antidote therapy as removal of offending agent would be appropriate first step. Will defer further management of this to admitting team who will consult hematology. Carboxyhemoglobin wnl. This patient was managed with the assistance of resident, Dr. Maximino Ulrich. I discussed the case with the resident, examined the patient, and confirm the findings and plan as documented in this note. Impression & Plan Dyspnea on exertion, Orthopnea, Perioral cyanosis, Methemoglobinemia Discharge Plan Visit Data *Final* Discharge Date/Time: 02/26/19 11:31 Chief Complaint: Shortness of Breath/Dyspnea Stated Complaint: SOB,NAUSEA,DIZZY STOMACH CRAMPS ED Provider: Omar Martin ED Midlevel Provider: Maximino Ulrich Discharge Problem: Dyspnea on exertion, Orthopnea, Perioral cyanosis, Methemoglobinemia Patient Disposition: Admitted As Inpatient Discharge Instructions Interventions: ED Discharge Assessment Last Done: 02/26/19 11:31 The scribe's documentation has been prepared under my direction and personally reviewed by me in its entirety. I confirm that the note above accurately reflects all work, treatment, procedures, and medical decision making performed by me.
--- NOTE | 2019-02-26 11:10 | History & Physical Report ---
Date of Service February 26, 2019 Assessment & Plan (1) Dyspnea due to congestive heart failure: Present on Admission?: Yes (2) Hypertension: Continue home meds. (3) Hyperlipidemia: (4) Fibromyalgia: (5) Acid reflux: Continue PPI. (6) Hypothyroidism: Continue Synthroid. (7) Atrial fibrillation: Continue with beta-blockers and anticoagulation with Eliquis. (8) AIDE on CPAP: Continue with CPAP per home settings (9) Valvular heart disease: (10) CHF (congestive heart failure): Present on Admission?: Yes (11) Pacemaker: Will change oral Bumex to IV Bumex twice daily. Continue Aldactone. Consult cardiology. Daily weights. Strict intake output. Monitor on telemetry floor. Continue home medications. Home medication list as reconciled. Continue with Eliquis for anticoagulation. CODE STATUS full code. History of Present Illness Chief Complaint: sob Primary Care Provider: Ryanne Pugh MD The patient is 63-year-old female who presented to the ER with complaints of increasing shortness of breath for last 4 days. Her dyspnea gets worse on exertion. She denies any chest pain. She has chronic swelling of the leg, and is on oral Bumex and spironolactone. The patient has also noticed that her lips occasionally gets blue. She is being followed by her clerical coordinator as outpatient and had echocardiogram done on Thursday which showed mitral regurgitation and tricuspid regurgitation. She also has history of sleep apnea and is on CPAP. The further work-up done in the ER showed that patient has acute on chronic con gestive heart failure , BNP is high at 2990; the patient will be admitted for further evaluation and management. Allergies Allergy/AdvReac Type Severity Reaction Status Date / Time Iodinated Contrast Media Allergy Severe ANAPHYLAXIS Unverified 02/26/19 08:51 amiodarone Allergy Intermediate increased Unverified 02/26/19 08:51 liver values tramadol Allergy Intermediate Hallucinati Unverified 02/26/19 08:51 ng adhesive tape Allergy Mild Rash Unverified 02/26/19 08:51 Home Medications Home Medications Medication Instructions Recorded Confirmed Type apixaban 5 mg tablet 5 mg PO BID 12/10/18 02/26/19 History fluoxetine 10 mg capsule 10 mg PO QAM 12/10/18 02/26/19 History levothyroxine 137 mcg tablet 137 mcg PO QAM 12/10/18 02/26/19 History pantoprazole 40 mg tablet,delayed 40 mg PO QAM 12/10/18 02/26/19 History release acetaminophen 500 mg capsule 1,000 mg PO HS PRN cap 12/13/18 02/26/19 History multivitamin tablet 1 tab PO DAILY 12/13/18 02/26/19 History omega-3 fatty acids 1,250 mg 1,250 mg PO QAM 12/13/18 02/26/19 History capsule spironolactone 25 mg tablet 12.5 mg PO QAM tab 12/13/18 02/26/19 History CPAP Machine 02/26/19 02/26/19 History baclofen 10 mg PO HS 02/26/19 02/26/19 History bumetanide 1 mg PO AMPM 02/26/19 02/26/19 History metoprolol succinate [Toprol XL] 25 mg PO QAM 02/26/19 02/26/19 History Past Med/Surg History Medical History Cancer of left kidney Acid reflux Anemia Arthritis Atrial fibrillation Cholecystitis Congestive heart failure Fibromyalgia History of hysterectomy done in 1983 Hyperlipidemia Pacemaker placed in 2004 Stomach ulcer Surgical History History of nephrectomy, left 2000 (precancerous cyst) History of appendectomy 1984 (right ovary preserved) History of cholecystectomy 1984 History of left knee surgery 2017 History of neck surgery cervical spine C5 and C6, 2003 History of permanent cardiac pacemaker placement placed in 2004, received wireless pacemaker in 2019 History of shoulder surgery L shoulder, 1997, 2000, 2002 S/P arthroscopic knee surgery right knee Family History Father Alcohol abuse Heart disease Hypertension Myocardial infarction Mother Colorectal cancer Gallbladder disease Brother Alcohol abuse Heart disease Hypertension Myocardial infarction Aunt Breast cancer Sister Colorectal cancer Social History Preferred Language: Slovak Visual Impairment: No Limitations Hearing Ability: Normal marital status: Legally Current Living Situation: Other Current Living Situation Comment: lives with friend at her home current occupational status: retired and disabled Feels Safe at Home: Yes Smoking Status: Never smoker Hx Alcohol Use: No Hx Substance Use: No Dental Care, Regularly: Yes Physical Activity Frequency: Other Physical Activity Frequency Comment: walks when she is able, activity is limited by physical condition Seatbelt Use: always Sunscreen Use: Yes Review of Systems Review of Systems: All systems reviewed & are unremarkable except as noted in HPI & below Respiratory: + cough, + chest congestion, + dyspnea and + dyspnea on exertion Cardiovascular: + dyspnea, + dyspnea at rest and + edema Physical Exam Physical Exam: GENERAL : No acute distress, obese female, EYES: No icterus, gaze conjugate NOSE: No evidence of epistaxis MOUTH: No lesions or candidiasis, mucosa moist NECK: Supple LUNGS: Decreased breath sound at bases HEART: Irregularly regular, systolic murmur present ABDOMEN: Soft, NT, ND, BS Present EXTREMITIES: Bilateral edema of the legs noted appears to be chronic,, pedal pulses intact NEURO: A&OX3 Results & Data Vital Signs (Past 12 Hours) Vital Signs Temp Pulse Resp BP Pulse Ox 02/26/19 10:01 85 22 96 02/26/19 09:30 61 17 95 02/26/19 09:29 64 16 95 02/26/19 09:19 22 120/64 95 02/26/19 07:39 97.5 F L 70 20 112/75 98 Laboratory Results 02/26/19 09:01 02/26/19 09:01 02/26/19 02/26/19 02/26/19 Range/Units 10:20 10:20 10:20 WBC (4.8-10.8) K/uL RBC (4.2-5.4) M/uL Hgb (12.0-16.0) g/dL Hct (37-47) % MCV (80-100) fL MCH (25-34) pg MCHC (32-36) g/dL RDW Std Deviation (36.4-46.3) fL RDW Coeff of Sudheer (11.5-14.5) % Plt Count (130-400) K/uL MPV (7.4-10.4) fL Immature Gran % (Auto) % Neut % (Auto) % Lymph % (Auto) % [place] % (Auto) % Eos % (Auto) % Baso % (Auto) % Immature Gran # (Auto) (0.00-0.02) K/uL Neut # (Auto) (1.4-6.5) K/uL Lymph # (Auto) (1.2-3.4) K/uL [place] # (Auto) (0.11-0.59) K/uL Eos # (Auto) (0-0.5) K/uL Baso # (Auto) (0-0.2) K/uL VBG pH (7.36-7.41) VBG pCO2 (38-50) mmHg VBG pO2 mmHg VBG HCO3 mmol/L VBG O2 Saturation % VBG Base Excess mEq/L Carboxyhemoglobin Cancelled 0.2 % THgb Methemoglobin 3.1 H (0.0-1.5) % Barometric Pressure mm/Hg Sodium (136-145) mmol/L Potassium (3.5-5.1) mmol/L Chloride (98-107) mmol/L Carbon Dioxide (21-32) mmol/L Anion Gap (3-11) BUN (7-18) mg/dl Creatinine (0.6-1.2) mg/dl Est Cr Clr Drug Dosing ml/min Est GFR ( Amer) Est GFR (Non-Af Amer) BUN/Creatinine Ratio (10-20) Glucose (70-99) mg/dl Calcium (8.5-10.1) mg/dl Phosphorus (2.5-4.9) mg/dl Magnesium (1.8-2.4) mg/dl Total Bilirubin (0.2-1) mg/dl AST (15-37) U/L ALT (12-78) U/L Alkaline Phosphatase (45-117) U/L Troponin I (0-0.045) ng/ml NT-Pro-B Natriuret Pep (0-900) pg/ml Total Protein (6.4-8.2) gm/dl Albumin (3.4-5.0) gm/dl Globulin (2.5-4.0) gm/dl Albumin/Globulin Ratio (0.9-2) Urine Color Urine Appearance (Clear) Urine pH (4.5-7.5) Ur Specific [place] (1.000-1.030) Urine Protein (Negative) Urine Glucose (UA) (Negative) Urine Ketones (Negative) Urine Blood (Negative) Urine Nitrite (Negative) Urine Bilirubin (Negative) Urine Urobilinogen (Negative) Ur Leukocyte Esterase (Negative) Urine RBC (0-4) /hpf Urine WBC (0-5) /hpf Ur Epithelial Cells (0-5) /lpf Urine Bacteria (Negative) 02/26/19 02/26/19 02/26/19 Range/Units 09:21 09:01 09:01 WBC (4.8-10.8) K/uL RBC (4.2-5.4) M/uL Hgb (12.0-16.0) g/dL Hct (37-47) % MCV (80-100) fL MCH (25-34) pg MCHC (32-36) g/dL RDW Std Deviation (36.4-46.3) fL RDW Coeff of Sudheer (11.5-14.5) % Plt Count (130-400) K/uL MPV (7.4-10.4) fL Immature Gran % (Auto) % Neut % (Auto) % Lymph % (Auto) % [place] % (Auto) % Eos % (Auto) % Baso % (Auto) % Immature Gran # (Auto) (0.00-0.02) K/uL Neut # (Auto) (1.4-6.5) K/uL Lymph # (Auto) (1.2-3.4) K/uL [place] # (Auto) (0.11-0.59) K/uL Eos # (Auto) (0-0.5) K/uL Baso # (Auto) (0-0.2) K/uL VBG pH 7.42 H (7.36-7.41) VBG pCO2 46 (38-50) mmHg VBG pO2 27 mmHg VBG HCO3 29 mmol/L VBG O2 Saturation < 60.0 % VBG Base Excess 4.3 mEq/L Carboxyhemoglobin % THgb Methemoglobin (0.0-1.5) % Barometric Pressure 734.3 mm/Hg Sodium 139 (136-145) mmol/L Potassium 3.7 (3.5-5.1) mmol/L Chloride 104 (98-107) mmol/L Carbon Dioxide 30 (21-32) mmol/L Anion Gap 5.0 (3-11) BUN 18 (7-18) mg/dl Creatinine 1.25 H (0.6-1.2) mg/dl Est Cr Clr Drug Dosing 61.1 ml/min Est GFR ( Amer) 52.3 Est GFR (Non-Af Amer) 45.1 BUN/Creatinine Ratio 14.1 (10-20) Glucose 87 (70-99) mg/dl Calcium 9.1 (8.5-10.1) mg/dl Phosphorus 3.6 (2.5-4.9) mg/dl Magnesium 2.4 (1.8-2.4) mg/dl Total Bilirubin 1.6 H (0.2-1) mg/dl AST 15 (15-37) U/L ALT 10 L (12-78) U/L Alkaline Phosphatase 103 (45-117) U/L Troponin I < 0.015 (0-0.045) ng/ml NT-Pro-B Natriuret Pep 2990 H (0-900) pg/ml Total Protein 7.3 (6.4-8.2) gm/dl Albumin 3.6 (3.4-5.0) gm/dl Globulin 3.7 (2.5-4.0) gm/dl Albumin/Globulin Ratio 1.0 (0.9-2) Urine Color Yellow Urine Appearance Clear (Clear) Urine pH 7.5 (4.5-7.5) Ur Specific [place] <= 1.005 (1.000-1.030) Urine Protein Negative (Negative) Urine Glucose (UA) Negative (Negative) Urine Ketones Negative (Negative) Urine Blood Trace H (Negative) Urine Nitrite Negative (Negative) Urine Bilirubin Negative (Negative) Urine Urobilinogen Negative (Negative) Ur Leukocyte Esterase Trace H (Negative) Urine RBC 0-4 (0-4) /hpf Urine WBC 0-5 (0-5) /hpf Ur Epithelial Cells 0-5 (0-5) /lpf Urine Bacteria Negative (Negative) 02/26/19 Range/Units 09:01 WBC 5.08 (4.8-10.8) K/uL RBC 3.87 L (4.2-5.4) M/uL Hgb 10.0 L (12.0-16.0) g/dL Hct 31.9 L (37-47) % MCV 82.4 (80-100) fL MCH 25.8 (25-34) pg MCHC 31.3 L (32-36) g/dL RDW Std Deviation 48.4 H (36.4-46.3) fL RDW Coeff of Sudheer 16.3 H (11.5-14.5) % Plt Count 191 (130-400) K/uL MPV 10.3 (7.4-10.4) fL Immature Gran % (Auto) 0.2 % Neut % (Auto) 70.3 % Lymph % (Auto) 14.4 % [place] % (Auto) 11.2 % Eos % (Auto) 3.7 % Baso % (Auto) 0.2 % Immature Gran # (Auto) 0.01 (0.00-0.02) K/uL Neut # (Auto) 3.57 (1.4-6.5) K/uL Lymph # (Auto) 0.73 L (1.2-3.4) K/uL [place] # (Auto) 0.57 (0.11-0.59) K/uL Eos # (Auto) 0.19 (0-0.5) K/uL Baso # (Auto) 0.01 (0-0.2) K/uL VBG pH (7.36-7.41) VBG pCO2 (38-50) mmHg VBG pO2 mmHg VBG HCO3 mmol/L VBG O2 Saturation % VBG Base Excess mEq/L Carboxyhemoglobin % THgb Methemoglobin (0.0-1.5) % Barometric Pressure mm/Hg Sodium (136-145) mmol/L Potassium (3.5-5.1) mmol/L Chloride (98-107) mmol/L Carbon Dioxide (21-32) mmol/L Anion Gap (3-11) BUN (7-18) mg/dl Creatinine (0.6-1.2) mg/dl Est Cr Clr Drug Dosing ml/min Est GFR ( Amer) Est GFR (Non-Af Amer) BUN/Creatinine Ratio (10-20) Glucose (70-99) mg/dl Calcium (8.5-10.1) mg/dl Phosphorus (2.5-4.9) mg/dl Magnesium (1.8-2.4) mg/dl Total Bilirubin (0.2-1) mg/dl AST (15-37) U/L ALT (12-78) U/L Alkaline Phosphatase (45-117) U/L Troponin I (0-0.045) ng/ml NT-Pro-B Natriuret Pep (0-900) pg/ml Total Protein (6.4-8.2) gm/dl Albumin (3.4-5.0) gm/dl Globulin (2.5-4.0) gm/dl Albumin/Globulin Ratio (0.9-2) Urine Color Urine Appearance (Clear) Urine pH (4.5-7.5) Ur Specific [place] (1.000-1.030) Urine Protein (Negative) Urine Glucose (UA) (Negative) Urine Ketones (Negative) Urine Blood (Negative) Urine Nitrite (Negative) Urine Bilirubin (Negative) Urine Urobilinogen (Negative) Ur Leukocyte Esterase (Negative) Urine RBC (0-4) /hpf Urine WBC (0-5) /hpf Ur Epithelial Cells (0-5) /lpf Urine Bacteria (Negative) Diagnostic Findings XR chest 1V portable CLINICAL HISTORY: Dyspnea dyspnea COMPARISON STUDY: 04/08/2017 FINDINGS: Mild stable cardiomegaly. Permanent cardiac pacemaker lead. Battery pack has been removed. Chronic pleural and parenchymal changes left base. Lungs otherwise appear clear. IMPRESSION: Mild stable cardiomegaly. No acute process. Code Status & VTE Plan Code Status Full code VTE Prophylaxis Plan VTE Prophylaxis will be ordered: Yes PG Care Time/CCT Total # of Minutes Spent Total Time Spent with Patient: Total time spent is greater than 50% in coordi nation of care (as documented) at patient's floor/unit and/or counseling patient: (1) Atrial fibrillation Atrial fibrillation type: permanent Qualified Code(s): I48.2 - Chronic atrial fibrillation (2) CHF (congestive heart failure) Heart failure type: unspecified Heart failure chronicity: acute on chronic Qualified Code(s): I50.9 - Heart failure, unspecified
[2019-02-26] MEDS ORDERED: NITROGLYCERIN SL 0.4 MG/TAB TAB SL PRN (11:56)
[2019-02-26] MEDS ORDERED: MoRPHine SULFATE 2 MG/ML CARP IV PRN (11:56)
[2019-02-26] MEDS: ACETAMINOPHEN 325 MG TAB PO PRN ×2 (15:32→23:05)
[2019-02-26] MEDS: BUMETANIDE 1 MG in SYRINGE 0 ML IV SCH (15:32)
[2019-02-26] MEDS ORDERED: DiphenhydrAMINE HCL 50 MG/ML VIAL IV STA (19:42)
[2019-02-26] MEDS ORDERED: CALCIUM CARBONATE 500 MG CHEWABLE TAB PO PRN (19:42)
[2019-02-26] MEDS: APIXABAN 5 MG TABLET PO SCH (19:50)
[2019-02-26] MEDS: BACLOFEN 10 MG TAB PO SCH (19:51)
[2019-02-27 03:07] LABS: Hematocrit (blood only) 30.2 % (37-47); Hemoglobin 9.7 g/dL (12.0-16.0); Mean Corpuscular Hemoglobin 25.9 pg (25-34); Mean Corpuscular Hgb Conc 32.1 g/dL (32-36); Mean Corpuscular Volume 80.7 fL (80-100); Mean Platelet Volume 9.9 fL (7.4-10.4); Platelet Count 179 K/uL (130-400); RDW Coefficient of Variation 16.2 % (11.5-14.5); Red Blood Count 3.74 M/uL (4.2-5.4); White Blood Count 5.62 K/uL (4.8-10.8)
[2019-02-27 03:25] LABS: BUN Creatinine Ratio 15.5 (10-20); Blood Urea Nitrogen 19 mg/dl (7-18); Calcium 8.6 mg/dl (8.5-10.1); Carbon Dioxide 28 mmol/L (21-32); Chloride 104 mmol/L (98-107); Creatinine Clr Calc Pharmacy 65.1 ml/min; Est GFR (African American) 54.4; Est GFR (Non-African American) 46.9; Glucose 89 mg/dl (70-99); Potassium 3.4 mmol/L (3.5-5.1); Sodium 139 mmol/L (136-145)
[2019-02-27 03:29] LABS: Troponin I < 0.015 ng/ml (0-0.045)
[2019-02-27] MEDS: ACETAMINOPHEN 325 MG TAB PO PRN (05:19)
[2019-02-27] MEDS: LEVOTHYROXINE SODIUM 137 MCG TABLET PO SCH (05:20)
[2019-02-27] MEDS: METOPROLOL SUCC 25MG EXT REL TAB PO SCH (08:37)
[2019-02-27] MEDS: SPIRONOLACTONE 25 MG TAB PO SCH (08:37)
[2019-02-27] MEDS: APIXABAN 5 MG TABLET PO SCH ×2 (08:37→21:14)
[2019-02-27] MEDS: MULTIVITAMIN TAB PO SCH (08:37)
[2019-02-27] MEDS: FLUOXETINE HCL 10 MG CAP PO SCH (08:37)
[2019-02-27] MEDS: BUMETANIDE 1 MG in SYRINGE 0 ML IV SCH ×2 (08:37→16:33)
[2019-02-27] MEDS: PANTOprazole 40 MG TAB PO SCH (08:37)
[2019-02-27] MEDS: OMEGA-3 (PURIFIED FISH OIL) 1 GM CAP PO SCH (08:37)
[2019-02-27] MEDS ORDERED: ALUMINUM/MAGNESIUM SUSP 18 ML, LIDOCAINE HCL VISCOUS 2% 6 ML, BARCODE IDENTIFIER 1 EA PO ONE (09:00)
--- NOTE | 2019-02-27 10:34 | Consultation Report ---
DATE OF CONSULTATION: 02/27/2019 REASON FOR CONSULTATION: Methemoglobinemia. HISTORY OF PRESENT ILLNESS: Kat is a very pleasant morbidly obese 63-year-old female who was admitted to [facility] yesterday with complaint of increasing shortness of breath and dyspnea on exertion for the past 4 days. Kat has a fascinating past clinical history of frequent cyanotic episodes that have been noticed by friends and family members throughout her life. The patient has never been formally evaluated by writer editor. She has several other comorbid issues including cardiac related issues, valvulopathy, and obstructive sleep apnea. Astutely, medical service had ordered an arterial blood gas which revealed 3% methemoglobinemia. For the most part, this lady has been asymptomatic; however, she relates episodes of cyanosis, specifically circumorally which occur quite frequently, especially on exertion. She reports no other family members with this problem. Methemoglobinemias can either be congenital or acquired, the latter being related to exposure to specific medication and chemicals. The patient is presently on no medicines that are directly related to methemoglobinemia and she relates no occupational or personal exposures either. Her symptoms have improved since being admitted to hospital. PAST MEDICAL HISTORY: Includes congestive heart failure, hypertension, hyperlipidemia, fibromyalgia, gastroesophageal reflux, hypothyroidism, atrial fibrillation, obstructive sleep apnea, valvular heart disease and pacemaker placement. CURRENT MEDICATIONS: Include apixaban 5 mg p.o. b.i.d., fluoxetine 10 mg p.o. daily, levothyroxine 137 mcg p.o. daily, Protonix 40 mg p.o. daily, Tylenol 1000 mg p.o. at bedtime p.r.n., multivitamin 1 tablet p.o. daily, omega 3 fatty acids 1250 mg p.o. daily, spironolactone 12.5 mg p.o. daily, baclofen 10 mg p.o. at bedtime, Bumex 1 mg p.o. q.a.m., metoprolol 25 mg p.o. daily. ALLERGIES: TRAMADOL, ADHESIVE TAPE, AMIODARONE, AND IV CONTRAST DYE. 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 She is legally . She has 4 grown children. She is negative for alcohol, cigarettes, or illicit drugs. FAMILY HISTORY: Father suffered from heart disease, hypertension and also was an alcoholic. Mother suffered from colorectal cancer and gallbladder disease. Brother again is an alcoholic unfortunately, he suffers from heart disease as well. She has an aunt with breast cancer and a sister who suffers from colon cancer. REVIEW OF SYSTEMS: As per HPI, most remarkable for episodes of cyanosis, shortness of breath and dyspnea on exertion. GENERAL: She denies fevers, chills or sweats. She is not anorexic, in fact morbidly obese. SKIN: No rashes or lesions. No history of dermatoses. HEENT: Negative for headaches, lightheadedness or dizziness. No acute visual or hearing deficits. No sinus symptoms, sore throat or dysphagia. LYMPH: No history of lymphoproliferative disease. CARDIAC: Positive history of cardiac disease particularly valvulopathy. No current angina or palpitations. PULMONARY: Positive for shortness of breath and dyspnea on exertion. She reports occasional nonproductive cough. No hemoptysis reported. GASTROINTESTINAL: Negative for abdominal pain, nausea, vomiting, diarrhea or constipation, hematochezia or melena of stools. GENITOURINARY: No hematuria, dysuria, or urinary incontinence. PSYCHIATRIC: Negative for anxiety, depression or psychoses. ENDOCRINE: Positive for hypothyroidism. MUSCULOSKELETAL: No focal muscle weakness. No arthralgias. NEUROLOGIC: Negative for seizure, stroke, or migraine headache. HEMATOLOGIC: Positive for methemoglobinemia. PHYSICAL EXAMINATION: GENERAL: Morbidly obese, very pleasant 63-year-old female, in no acute distress. VITAL SIGNS: Temperature 36.9, pulse 60, respiratory rate 18, blood pressure 98/64. SKIN: Warm and dry. There is no apparent cyanosis during this morning's examination. HEENT: Head is atraumatic, normocephalic. Eyes: PERRLA, EOMI. Sclerae nonicteric. No conjunctival injection. Nares are patent without rhinorrhea or discharge. Throat is clear. Tongue is midline. Mucous membranes are moist. NECK: Supple without JVD or thyromegaly. LYMPS: No cervical, supraclavicular, axillary or inguinal palpable nodes. HEART: Regular rate and rhythm. No clicks, rubs, murmurs or gallops. LUNGS: Clear to auscultation bilaterally. ABDOMEN: Soft, nontender, nondistended, without palpable hepatosplenomegaly. EXTREMITIES: No calf tenderness or swelling. No clubbing, cyanosis or edema. NEUROLOGICAL: She is awake, alert and oriented x3. Cranial nerves II-XII are grossly intact. LABORATORY DATA: WBC count 5620, hemoglobin 9.7, platelet count 179,000. Methemoglobin level 3.1%. Sodium 139, potassium 3.4, chloride 104, carbon dioxide 28, creatinine 1.21, BUN 19. IMPRESSION: 1. Methemoglobinemia. 2. Dyspnea on exertion/shortness of breath. 3. Hypertension. 4. Hyperlipidemia. 5. Fibromyalgia. 6. Hypothyroidism. 7. Valvular heart disease. 8. Obstructive sleep apnea. PLAN: I have been asked to become involved in this very fascinating 63-year-old female's clinical case. This lady imparts longstanding history of episodes of cyanosis which have never been worked up. Astutely, blood gas was performed and a low level of methemoglobin was detected. Methemoglobinemia can be either congenital or acquired. Approaching a 63-year-old definitely felt that this was most likely acquired; however, after taking her history, I now believe this may be congenital. I can find no inciting agents that are associated with this disorder. 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 Most patients with this disorder lack symptoms other than cyanosis and when symptoms are reported or generally mild including headache, fatigue and exertional dyspnea. Mild polycythemia is often present; however, not in Kat's case. In fact, she is anemic. In contrast, type 2 cytochrome B5 reductase deficiencies generally are much more severe and usually life expectancy quite short with neurologic problems superimposed. Treatment for severe methemoglobinemia content greater than 20% usually involves administration of methylene blue and if not available intravenous ascorbic acid can be used. However, Kat's level is quite low and does not necessarily need intervention expediently. I would like to repeat her arterial blood gas today. Ultimately, I will send Kat down to [facility] for more extensive workup and would follow her locally thereafter. Thank you very much for allowing me to participate in this fascinating case. If you have any questions or concerns, feel free to contact me at any time. DENN[place]
--- NOTE | 2019-02-27 11:01 | Cardiology Consultation ---
Date of Consultation February 27, 2019 Assessment & Plan (1) SOB (shortness of breath) on exertion: She presents with shortness of breath which appears to be due to congestive heart failure although the reason for that is not clear. It has been progressive and she has signs of congestive heart failure, therefore I would agree with diuresis. A contributing factor to her shortness of breath is possibly her methemoglobinemia. (2) CHF (congestive heart failure): She seems to have congestive heart failure based on her exam, BNP and possibly chest x-ray. The cause is not clear, her recent echocardiogram did not show significant left ventricular dysfunction although it is not normal and she does have a wide electrical complex therefore she probably has a component of systolic left ventricular dysfunction as well as diastolic. I suspect she has a combined systolic and diastolic contribution to her congestive heart failure. I would diurese her, I do not see any reason for further cardiac evaluation at this time. Her cardiac enzymes are negative and I do not suspect ischemia. The endpoint of diuresis may be a little hard to identify. (3) Atrial fibrillation: She has permanent atrial fibrillation needs to be on an anticoagulant, currently she is on apixaban and although not sure its efficacy has been proven with her weight as far as I know there is no evidence that it will not work and she seems to be doing well on it. I would continue it. (4) Atrioventricular block, complete: She has a history of complete heart block and is ventricularly paced, this seems to be appropriate on telemetry. (5) Pacemaker: Her pacemaker was recently evaluated and was functioning well, it is working well on telemetry so I do not think any further evaluation is needed. History of Present Illness Reason for Consultation: CHF Attending Physician: Kuldip Stanton DO History of Present Illness This is a 63-year-old woman with a history of obesity (she has been losing weight however), permanent atrial fibrillation and complete heart block. She also has an interesting history of having her lips turned very blue when she exercises, that evidently was not explained in the past however she evidently was told that that discoloration might be due to having methemoglobinemia. Most of her care has been in [place]. She had a pacemaker implanted I believe in 2005, in 2017 she had severe tricuspid regurgitation identified which was felt possibly related to her pacing lead therefore that lead was extracted and she had the pacemaker replaced with a new lead in September 2018. She has had difficulty with congestive heart failure and edema however echocardiography recently on February 21, 2019 showed normal left ventricular size with concentric left ventricular hypertrophy and low normal systolic ejection fraction of 50 to 55%. No wall motion abnormalities. She presents now with less than 1 week of exertional shortness of breath and n oting that her lips are turning blue as noted above, she felt that she could not do anything without being very short of breath and she also was having some nausea. She has not noticed leg edema, she was weighing herself up until about a week ago and did not notice a weight gain. She has not been weighing herself in the last week. She does not have exertional chest discomfort and denies orthopnea or PND. Allergies Allergy/AdvReac Type Severity Reaction Status Date / Time Iodinated Contrast Media Allergy Severe ANAPHYLAXIS Unverified 02/26/19 08:51 amiodarone Allergy Intermediate increased Unverified 02/26/19 08:51 liver values tramadol Allergy Intermediate Hallucinati Unverified 02/26/19 08:51 ng adhesive tape Allergy Mild Rash Unverified 02/26/19 08:51 Home Medications Home Medications Medication Instructions Recorded Confirmed Type apixaban 5 mg tablet 5 mg PO BID 12/10/18 02/26/19 History fluoxetine 10 mg capsule 10 mg PO QAM 12/10/18 02/26/19 History levothyroxine 137 mcg tablet 137 mcg PO QAM 12/10/18 02/26/19 History pantoprazole 40 mg tablet,delayed 40 mg PO QAM 12/10/18 02/26/19 History release acetaminophen 500 mg capsule 1,000 mg PO HS PRN cap 12/13/18 02/26/19 History multivitamin tablet 1 tab PO DAILY 12/13/18 02/26/19 History omega-3 fatty acids 1,250 mg 1,250 mg PO QAM 12/13/18 02/26/19 History capsule spironolactone 25 mg tablet 12.5 mg PO QAM tab 12/13/18 02/26/19 History CPAP Machine 02/26/19 02/26/19 History baclofen 10 mg PO HS 02/26/19 02/26/19 History bumetanide 1 mg PO AMPM 02/26/19 02/26/19 History metoprolol succinate [Toprol XL] 25 mg PO QAM 02/26/19 02/26/19 History Patient History Medical History Cancer of left kidney Acid reflux Anemia Arthritis Atrial fibrillation Cholecystitis Congestive heart failure Fibromyalgia History of hysterectomy done in 1983 Hyperlipidemia Pacemaker placed in 2004 Stomach ulcer Surgical History History of nephrectomy, left 2000 (precancerous cyst) History of appendectomy 1984 (right ovary preserved) History of cholecystectomy 1984 History of left knee surgery 2017 History of neck surgery cervical spine C5 and C6, 2003 History of permanent cardiac pacemaker placement placed in 2004, received wireless pacemaker in 2019 History of shoulder surgery L shoulder, 1997, 2000, 2002 S/P arthroscopic knee surgery right knee Family History Father Alcohol abuse Heart disease Hypertension Myocardial infarction Mother Colorectal cancer Gallbladder disease Brother Alcohol abuse Heart disease Hypertension Myocardial infarction Aunt Breast cancer Sister Colorectal cancer Social History Preferred Language: Chinese Communication Ability: Effective Visual Impairment: No Limitations Hearing Ability: Normal Gage Designer Required: No Beliefs That Will Affect Care: None marital status: Legally Current Living Situation: Family Current Living Situation Comment: lives with friend at her home current occupational status: retired and disabled Feels Safe at Home: Yes Smoking Status: Never smoker Hx Alcohol Use: No Hx Substance Use: No Dental Care, Regularly: Yes Physical Activity Frequency: Other Physical Activity Frequency Comment: walks when she is able, activity is limited by physical condition Seatbelt Use: always Sunscreen Use: Yes Review of Systems Review of Systems: All systems reviewed & are unremarkable except as noted in HPI & below Physical Exam Physical Exam: Constitutional: Alert, cooperative and in no distress. She is obese. HEENT: Unremarkable Neck: No jugular venous distention, carotid pulses are normal and equal bilaterally without bruits. Pulmonary: Bilateral crackles at bases, right greater than left, on auscultation bilaterally. Cardiac: Regular rhythm with no murmur, gallop or rub. Abdomen: Soft, nontender with normal bowel sounds. Extremities: +2 bilateral edema I believe although her legs are very heavy. Dis fermin pulses are difficult to feel. Neurologic: No focal findings. Gait . Was not tested Skin: No rash, ecchymoses or petechiae. Results & Data Vital Signs (Past 12 Hours) Vital Signs Temp Pulse Resp BP Pulse Ox 02/27/19 07:29 36.9 C 60 18 98/64 L 97 02/27/19 05:34 36.6 C 59 L 20 102/68 96 02/27/19 00:29 36.9 C 59 L 18 106/71 96 Laboratory Results Abnormal lab results 02/27/19 02/27/19 Range/Units 02:46 02:46 RBC 3.74 L (4.2-5.4) M/uL Hgb 9.7 L (12.0-16.0) g/dL Hct 30.2 L (37-47) % RDW Std Deviation 47.0 H (36.4-46.3) fL RDW Coeff of Sudheer 16.2 H (11.5-14.5) % Potassium 3.4 L (3.5-5.1) mmol/L BUN 19 H (7-18) mg/dl Creatinine 1.21 H (0.6-1.2) mg/dl Diagnostic Findings Electrocardiogram: Underlying atrial fibrillation, ventricular paced rhythm Telemetry: Ventricular paced rhythm PG Care Time/CCT Total # of Minutes Spent Total Time Spent with Patient: Total time spent is greater than 50% in coordination of care (as documented) at patient's floor/unit and/or counseling patient: (1) CHF (congestive heart failure) Heart failure chronicity: acute on chronic Heart failure type: unspecified Qualified Code(s): I50.9 - Heart failure, unspecified (2) Atrial fibrillation Atrial fibrillation type: permanent Qualified Code(s): I48.2 - Chronic atrial fibrillation
--- NOTE | 2019-02-27 13:18 | Family Medicine Progress Note ---
Date of Service February 27, 2019 Assessment & Plan (1) SOB (shortness of breath) on exertion: 63yo F PMH HTN, HLD, CHF, SSS s/p pacemaker placement, Anemia, GERD, hypothyroid presents with progressive dyspnea and GO. Admitted for suspected CHF exacerbation. Dyspnea/CHF exacerbation -Pt with mixed diastolic/systolic CHF, HF preserved at 50-55%. Appreciate cardiology consult. -BMP mildly elevated at 2994, CXR and exam features not clearly correlating to CHF exacerbation -Continue IV Bumex with home/PO dosing. Cont Aldactone. -Pt with very mildly elevated methemoglobin level; may be contributing but unlikely sole cause of symptoms. -Consider ambulatory pulse ox monitoring -Pt had been following fluid restriction at home and notes she had recently been losing weight. Notes she has also been urinating frequently -Cont to monitor I&Os, daily weights; weights so far inconsistent Abdominal discomfort/nausea -Improved with GI cocktail -Zofran PRN -Pt notes she gets periodic "gastritis" -Cont home protonix -Consider further eval depending on clinical course HTN/HLD -Cont current home regimen (aldactone, toprol XL 25 qAM) Atrial fibrillation -Permanent; continue eliquis -Unsure if effective at current weight Hypothyroid -Cont synthroid AV Block/SSS s/p pacemaker -Recently interrogated, functioning well. -No abnormalities on telemetry AIDE -Cont CPAP HS Fibromyalgia -Cont baclofen Dispo: tele; cont downgrade if stable in AM DVTP: Eliquis Code: Full (2) CHF (congestive heart failure): (3) Atrial fibrillation: (4) Atrioventricular block, complete: (5) Pacemaker: (6) Valvular heart disease: (7) AIDE on CPAP: (8) Hyperlipidemia: (9) Hypertension: (10) Fibromyalgia: (11) Acid reflux: (12) Hypothyroidism: Supervising Physician Co-Signing Physician Notes Patient seen and examined with Dr. Davies. I agree with their exam findings, review of systems, assessment and plan. I have personally reviewed the lab work and imaging from today. patient is breathing better, she is negative 1.5 liters after bumex 1mg IV BID discussed with Dr Rodarte, interesting case with potential methemoglobulinemia, will need outpatient referral to [facility] discussed with Dr. Stover, agrees with Bumex IV, could likely go home tomorrow patient c/o some nausea and epigastric pain, says she gets mild gastritis from time to time Exam: obese female in NAD, AAOx3, lungs CTA bilaterally, normal effort, heart regular S1 S2 no murmurs abdomen soft, mild TTP in epigastric region, ND, +BS extremities warm, no edema, no clubbing or cyanosis Acute on chronic heart failure with preserved EF unclear why, she is compliant with Bumex and fluid restriction she reports that she has been trying to lose weight and weight has been going down she does say she had some edema in legs yesterday, it is now resolved continue Bumex 1mg IV BID, transition to PO and d/c home tomorrow Methemoglobulinemia appreciate consult from Dr. Rodarte will get an outpatient referral to [facility] Subjective Patient evaluated at bedside this AM. Reports overall she feels better than on presentation yesterday. Does note, however, that her stomach continues to be upset and that this is associated with discomfort, nausea, and cramps. Denies shortness of breath. Pt states that she has been following a fluid restriction at home and had in fact been losing weight intentionally. Review of Systems Review of Systems: All systems reviewed & are unremarkable except as noted in HPI & below Constitutional: + fatigue and + malaise; no fever, no chills and no anorexia Respiratory: + dyspnea on exertion; no cough and no dyspnea Cardiovascular: + dyspnea on exertion and + edema; no chest pain, no radiating jaw, neck or arm pain, no orthopnea, no palpitations, no lightheadedness, no syncope and no calf pain Gastrointestinal: + abdominal pain, + nausea, + cramping and + diarrhea/loose stools; no heartburn and no vomiting Physical Exam Constitutional: WD/WN, vitals as above + morbidly obese and cooperative Eyes: PERRL, conjunctivae normal, anicteric sclerae ENMT: external ear and nose normal, oropharynx normal Mouth: oral mucous membranes not dry Neck: normal visual inspection Respiratory: normal respiratory effort; no labored breathing Auscultation: + crackles (trace, scattered); no rales, no rhonchi and no wheezes Cardiovascular: Rate/Rhythm: regular rate and + irregularly irregular Vessels: no JVD Extremities: + pedal edema (trace-1+; difficult to ascertain 2/2 large legs) Pacemaker in situ Gastrointestinal (Abdomen): Inspection/Auscultation: abdomen normal to inspection Percussion/Palpation: + abdomen tender (epigastric) and abdomen soft Musculoskeletal: no cyanosis or clubbing, extremities motor strength 5/5 Skin: no rashes, warm and dry normal turgor Neurologic: PERRL, EOMI, accommodation nl, no face palsy, no dysarthria Psychiatric: A+Ox3, euthymic affect Results & Data Vital Signs (Past 12 Hours) Vital Signs Temp Pulse Resp BP Pulse Ox 02/27/19 12:12 97.3 F L 82 20 130/71 97 02/27/19 07:29 98.4 F 60 18 98/64 L 97 02/27/19 05:34 97.9 F 59 L 20 102/68 96 Laboratory Results 02/27/19 02/27/19 02/26/19 Range/Units 02:46 02:46 18:25 WBC 5.62 (4.8-10.8) K/uL RBC 3.74 L (4.2-5.4) M/uL Hgb 9.7 L (12.0-16.0) g/dL Hct 30.2 L (37-47) % MCV 80.7 (80-100) fL MCH 25.9 (25-34) pg MCHC 32.1 (32-36) g/dL RDW Std Deviation 47.0 H (36.4-46.3) fL RDW Coeff of Sudheer 16.2 H (11.5-14.5) % Plt Count 179 (130-400) K/uL MPV 9.9 (7.4-10.4) fL Sodium 139 (136-145) mmol/L Potassium 3.4 L (3.5-5.1) mmol/L Chloride 104 (98-107) mmol/L Carbon Dioxide 28 (21-32) mmol/L Anion Gap 7.0 (3-11) BUN 19 H (7-18) mg/dl Creatinine 1.21 H (0.6-1.2) mg/dl Est Cr Clr Drug Dosing 65.1 ml/min Est GFR ( Amer) 54.4 Est GFR (Non-Af Amer) 46.9 BUN/Creatinine Ratio 15.5 (10-20) Glucose 89 (70-99) mg/dl Calcium 8.6 (8.5-10.1) mg/dl Troponin I < 0.015 < 0.015 (0-0.045) ng/ml Medications Administered Current Inpatient Medications Acetaminophen (Tylenol) 650 mg PO Q4H PRN PRN Reason: pain/fever Stop: 03/28/19 11:55 Last Admin: 02/27/19 05:19 Dose: 650 mg Documented by: Acetaminophen (Tylenol) 1,000 mg PO HS PRN PRN Reason: Pain Stop: 03/28/19 11:55 Apixaban (Eliquis) 5 mg PO BID [facility] Stop: 03/28/19 20:59 Last Admin: 02/27/19 08:37 Dose: 5 mg Documented by: Baclofen (Lioresal) 10 mg PO HS [facility] Stop: 03/28/19 20:59 Last Admin: 02/26/19 19:51 Dose: 10 mg Documented by: Calcium Carbonate (Tums) 500 mg PO Q2H PRN PRN Reason: Indigestion Stop: 03/28/19 19:41 Fish Oil ([place]-3 (Purified Fish Oil)) [facility] Stop: 03/29/19 08:59 Last Admin: 02/27/19 08:37 Dose: 1 gm Documented by: Fluoxetine HCl (Prozac) 10 mg PO QAM [facility] Stop: 03/29/19 08:59 Last Admin: 02/27/19 08:37 Dose: 10 mg Documented by: Bumetanide 1 mg/ Syringe 4 mls @ 4 mls/min IV DAILY@0900,1700 [facility] Stop: 03/28/19 16:59 Last Admin: 02/27/19 08:37 Dose: 4 mls/min Documented by: Levothyroxine Sodium (Levothyroxine Sodium) 137 mcg PO DAILYBB [facility] Stop: 03/29/19 06:29 Last Admin: 02/27/19 05:20 Dose: 137 mcg Documented by: Metoprolol Succinate (Toprol Xl) 25 mg PO QAM [facility] Stop: 03/29/19 08:59 Last Admin: 02/27/19 08:37 Dose: 25 mg Documented by: Morphine Sulfate (Morphine Sulfate) 2 mg IV Q30M PRN PRN Reason: Chest Pain Stop: 03/12/19 11:55 Multivitamins (Multivitamin Tab) 1 tab PO DAILY [facility] Stop: 03/29/19 08:59 Last Admin: 02/27/19 08:37 Dose: 1 tab Documented by: Nitroglycerin (Nitrostat) 0.4 mg SL UD PRN PRN Reason: Chest Pain Stop: 03/28/19 11:55 Ondansetron HCl (Zofran) 4 mg IV Q4H PRN PRN Reason: Nausea Stop: 03/29/19 13:27 Pantoprazole Sodium (Protonix) 40 mg PO QAM [facility] Stop: 03/29/19 08:59 Last Admin: 02/27/19 08:37 Dose: 40 mg Documented by: Spironolactone (Aldactone) 12.5 mg PO QAM [facility] Stop: 03/29/19 08:59 Last Admin: 02/27/19 08:37 Dose: 12.5 mg Documented by: PG Care Time/CCT Total # of Minutes Spent Total Time Spent with Patient: Total time spent is greater than 50% in coordination of care (as documented) at patient's floor/unit and/or counseling patient: Resident Activity Tracking Resident Involvement: Resident Care Provided Care Provided: Adult Hospital Medicine (1) CHF (congestive heart failure) Heart failure chronicity: acute on chronic Heart failure type: unspecified Qualified Code(s): I50.9 - Heart failure, unspecified (2) Atrial fibrillation Atrial fibrillation type: permanent Qualified Code(s): I48.2 - Chronic atrial fibrillation
[2019-02-27] MEDS: ONDANSETRON INJ 2 MG/ML 2 ML VIAL IV PRN (13:54)
[2019-02-27] MEDS: ACETAMINOPHEN 500 MG TAB PO PRN (20:29)
[2019-02-27] MEDS: BACLOFEN 10 MG TAB PO SCH (20:30)
[2019-02-28] MEDS: ACETAMINOPHEN 500 MG TAB PO PRN (05:18)
[2019-02-28] MEDS: LEVOTHYROXINE SODIUM 137 MCG TABLET PO SCH (05:18)
[2019-02-28 06:45] LABS: Basophils # (auto) 0.03 K/uL (0-0.2); Basophils % (auto) 0.5 %; Eosinophils # (auto) 0.29 K/uL (0-0.5); Hematocrit (blood only) 31.5 % (37-47); Immature Granulocytes # (auto) 0.01 K/uL (0.00-0.02); Immature Granulocytes % (auto) 0.2 %; Lymphocytes # (auto) 1.18 K/uL (1.2-3.4); Lymphocytes % (auto) 20.4 %; Mean Corpuscular Hemoglobin 25.8 pg (25-34); Mean Corpuscular Hgb Conc 31.7 g/dL (32-36); Mean Corpuscular Volume 81.2 fL (80-100); Mean Platelet Volume 9.9 fL (7.4-10.4); Monocytes # (auto) 0.72 K/uL (0.11-0.59); Monocytes % (auto) 12.4 %; Neutrophils # (auto) 3.56 K/uL (1.4-6.5); Neutrophils % (auto) 61.5 %; Platelet Count 179 K/uL (130-400); RDW Coefficient of Variation 16.3 % (11.5-14.5); RDW Standard Deviation 48.1 fL (36.4-46.3); Red Blood Count 3.88 M/uL (4.2-5.4); White Blood Count 5.79 K/uL (4.8-10.8)
[2019-02-28 07:13] LABS: BUN Creatinine Ratio 13.5 (10-20); Calcium 8.8 mg/dl (8.5-10.1); Creatinine Clr Calc Pharmacy 59.1 ml/min; Est GFR (African American) 48.5; Est GFR (Non-African American) 41.8; Potassium 3.8 mmol/L (3.5-5.1)
[2019-02-28] MEDS: BUMETANIDE 1 MG in SYRINGE 0 ML IV SCH (08:22)
[2019-02-28] MEDS: METOPROLOL SUCC 25MG EXT REL TAB PO SCH (08:23)
[2019-02-28] MEDS: PANTOprazole 40 MG TAB PO SCH (08:23)
[2019-02-28] MEDS: APIXABAN 5 MG TABLET PO SCH (08:23)
[2019-02-28] MEDS: OMEGA-3 (PURIFIED FISH OIL) 1 GM CAP PO SCH (08:23)
[2019-02-28] MEDS: MULTIVITAMIN TAB PO SCH (08:23)
[2019-02-28] MEDS: SPIRONOLACTONE 25 MG TAB PO SCH (08:23)
[2019-02-28] MEDS: FLUOXETINE HCL 10 MG CAP PO SCH (08:23)
--- NOTE | 2019-02-28 09:15 | Progress Note ---
DATE: 02/28/2019 HEMATOLOGY PROGRESS NOTE DIAGNOSES: 1. Methemoglobinemia. 2. Dyspnea on exertion/shortness of breath. 3. Hypertension. 4. Hyperlipidemia. 5. Obstructive sleep apnea. SUBJECTIVE: Kat was seen and examined at bedside. Enjoying her breakfast. She is feeling much better and suspect probably will go home today. Repeated methemoglobin level this morning was 2.7. Again, my plan moving forward is to see her in the outpatient arena and send her to [place] for formal consultation to work up this hemoglobinopathy. The patient is agreeable to the above plan. Nursing reports no overnight difficulties otherwise today. OBJECTIVE: GENERAL: A very pleasant morbidly obese 63-year-old female in no acute distress. VITAL SIGNS: Temperature 36.9, pulse 60, respiratory rate 19, blood pressure 97/62. SKIN: Without rash or lesion. HEENT: Oral mucosa without erythema or ulceration. HEART: Regular rate and rhythm. LUNGS: Clear to auscultation bilaterally. ABDOMEN: Obese, soft, nontender. EXTREMITIES: No clubbing, cyanosis or edema. NEUROLOGICAL: Grossly intact. LABORATORY DATA: WBC count 5790, hemoglobin 10, platelet count 179,000. Again, methemoglobin level 2.7. Sodium 137, potassium 3.8, chloride 103, carbon dioxide 28, creatinine 1.33, BUN 18. RADIOGRAPHIC DATA: Chest x-ray from the reveals some mild stable cardiomegaly with no acute pulmonary processes. IMPRESSION: 1. Methemoglobinemia. 2. Dyspnea on exertion/shortness of breath. 3. Hypertension. 4. Hyperlipidemia. 5. Obstructive sleep apnea. PLAN: Kat is a pleasant 63-year-old female patient seen yesterday with methemoglobin level of approximately 3%. Again, she reports history of cyanotic episodes spanning back many years and thus, I believe, she has a congenital methemoglobinemia. She does not require acute treatment right now. Her repeated methemoglobin level today was 2.7. I assume she will go home today. We will set her up for a followup visit and I will plan to send her to hematology in [place] for formal workup. The patient is agreeable to the above plan. Appreciate allowing me to participate in her care.
--- NOTE | 2019-02-28 09:51 | Cardiology Progress Note ---
Date of Service February 28, 2019 Assessment & Plan (1) SOB (shortness of breath) on exertion: She is felt to have an element of pulmonary vascular congestion at the time of admission. Her symptoms have improved. She did affect a good diuresis on intravenous bumetanide. Curiously, she takes the same dose of medication at home. I think would be reasonable to switch her to an oral regimen and see if she continues to have a diuresis. Clinically she has responded. She continues to have cyanosis with ambulation and it is unclear how this contributes to her symptoms. (2) CHF (congestive heart failure): I think this was likely relatively mild. Her x-ray was not highly suggestive of pulmonary edema. She had an elevated N terminal proBNP which could be more reflective of right-sided failure given her known tricuspid regurgitation. However, she did seemed to have improvement of her symptoms with diuresis. I think would be reasonable continue her on her outpatient medical regimen and see if she affect a diuresis on oral dosing. (3) Atrial fibrillation: She has permanent atrial fibrillation needs to be on an anticoagulant, currently she is on apixaban and although not sure its efficacy has been proven with her weight as far as I know there is no evidence that it will not work and she seems to be doing well on it. I would continue it. (4) Atrioventricular block, complete: She had removal of her ventricular lead in the hopes of reducing her tricuspid regurgitation. Her outpatient echo performed in our clinic recently suggested an element of tricuspid regurgitation which cannot be directly compared to prior studies since she recently moved from [place]. She appears to have a normally functioning lead less pacemaker. (5) Pacemaker: Her single-chamber ventricular pacemaker was recently evaluated and was functioning well, it is working well on telemetry so I do not think any further evaluation is needed. Subjective This more the patient states that her breathing is better. She is able ambulate yesterday and felt that while, not normal, her breathing is much improved. Currently she also complains of some abdominal discomfort that she feels is gastritis. She has some nausea and loose stools. Review of Systems Review of Systems: Per HPI Physical Exam Physical Exam: She is alert and oriented x3. Mood affect appear normal. She answered all questions appropriately. Obese HEENT: Sclerae are anicteric. Pupils are equal and reactive to light and accommodation. Extraocular movements were intact. Neuro: Cranial nerves intact Neck: Examination of the submandibular region did not reveal any significant lymphadenopathy. Carotids are palpable bilaterally and free of bruits on auscultation. There was no evidence of jugular venous distention. The thyroid was not enlarged. Lungs: Lungs are clear to auscultation bilaterally. There are no rales wheezes or rhonchi. She has normal respiratory effort without use of accessory muscles. There is normal pulmonary excursion. Cardiac: The rhythm was regular. S1 and S2 were normal. There are no murmurs on examination. The PMI was not markedly displaced on palpation. Abdomen: The abdomen was soft and nontender. Extremities: Patient has bilateral radial pulses that are equal in intensity. There is no evidence cyanosis or clubbing. There was moderate peripheral edema bilaterally. Skin: There are no rashes noted on examination today. Results & Data Vital Signs (Past 12 Hours) Vital Signs Temp Pulse Resp BP Pulse Ox 02/28/19 07:10 36.9 C 60 19 97/62 L 95 02/28/19 03:22 36.6 C 61 20 102/66 94 02/27/19 23:28 36.7 C 60 19 98/61 L 94 Laboratory Results Abnormal Lab Results 02/28/19 02/28/19 02/28/19 06:12 06:12 06:18 WBC 5.79 RBC 3.88 L Hgb 10.0 L Hct 31.5 L MCV 81.2 MCH 25.8 MCHC 31.7 L RDW Std Deviation 48.1 H RDW Coeff of Sudheer 16.3 H Plt Count 179 MPV 9.9 Immature Gran % (Auto) 0.2 Neut % (Auto) 61.5 Lymph % (Auto) 20.4 [place] % (Auto) 12.4 Eos % (Auto) 5.0 Baso % (Auto) 0.5 Immature Gran # (Auto) 0.01 Neut # (Auto) 3.56 Lymph # (Auto) 1.18 L [place] # (Auto) 0.72 H Eos # (Auto) 0.29 Baso # (Auto) 0.03 Methemoglobin 2.7 H Sodium 137 Potassium 3.8 Chloride 103 Carbon Dioxide 28 Anion Gap 7.0 BUN 18 Creatinine 1.33 H Est Cr Clr Drug Dosing 59.1 Est GFR ( Amer) 48.5 Est GFR (Non-Af Amer) 41.8 BUN/Creatinine Ratio 13.5 Glucose 93 Calcium 8.8 PG Care Time/CCT Total # of Minutes Spent Total Time Spent with Patient: Total time spent is greater than 50% in coordination of care (as documented) at patient's floor/unit and/or counseling patient: (1) CHF (congestive heart failure) Heart failure type: unspecified Heart failure chronicity: acute on chronic Qualified Code(s): I50.9 - Heart failure, unspecified (2) Atrial fibrillation Atrial fibrillation type: permanent Qualified Code(s): I48.2 - Chronic atrial fibrillation
[2019-02-28] MEDS: ACETAMINOPHEN 325 MG TAB PO PRN (11:44)
[2019-02-28] MEDS: ONDANSETRON INJ 2 MG/ML 2 ML VIAL IV PRN (13:40)
--- NOTE | 2019-02-28 16:56 | Discharge Summary ---
Date of Service February 28, 2019 Admission HPI Per Admitting Provider The patient is 63-year-old female who presented to the ER with complaints of increasing shortness of breath for last 4 days. Her dyspnea gets worse on exertion. She denies any chest pain. She has chronic swelling of the leg, and is on oral Bumex and spironolactone. The patient has also noticed that her lips occasionally gets blue. 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 She also has history of sleep apnea and is on CPAP. The further work-up done in the ER showed that patient has acute on chronic congestive heart failure , BNP is high at 2990; the patient will be admitted for further evaluation and management. Admission Exam Per Admitting Provider Physical Exam: GENERAL : No acute distress, obese female, EYES: No icterus, gaze conjugate NOSE: No evidence of epistaxis MOUTH: No lesions or candidiasis, mucosa moist NECK: Supple LUNGS: Decreased breath sound at bases HEART: Irregularly regular, systolic murmur present ABDOMEN: Soft, NT, ND, BS Present EXTREMITIES: Bilateral edema of the legs noted appears to be chronic,, pedal pulses intact NEURO: A&OX3 Principal Diagnosis CHF exacerbation Discharge Exam Constitutional: WD/WN, vitals as above + morbidly obese and cooperative Eyes: PERRL, conjunctivae normal, anicteric sclerae ENMT: external ear and nose normal, oropharynx normal Mouth: oral mucous membranes not dry Neck: normal visual inspection Respiratory: normal respiratory effort; no labored breathing Auscultation: + crackles (trace, scattered); no rales, no rhonchi and no wheezes Cardiovascular: Rate/Rhythm: regular rate and + irregularly irregular Vessels: no JVD Extremities: + pedal edema (trace-1+; difficult to ascertain 2/2 large legs) Pacemaker in situ Gastrointestinal (Abdomen): Inspection/Auscultation: abdomen normal to inspection Percussion/Palpation: + abdomen tender (epigastric) and abdomen soft Musculoskeletal: no cyanosis or clubbing, extremities motor strength 5/5 Skin: no rashes, warm and dry normal turgor Neurologic: PERRL, EOMI, accommodation nl, no face palsy, no dysarthria Psychiatric: A+Ox3, euthymic affect Discharge Data Allergies Allergy/AdvReac Type Severity Reaction Status Date / Time Iodinated Contrast Media Allergy Severe ANAPHYLAXIS Unverified 02/26/19 08:51 amiodarone Allergy Intermediate increased Unverified 02/26/19 08:51 liver values tramadol Allergy Intermediate Hallucinati Unverified 02/26/19 08:51 ng adhesive tape Allergy Mild Rash Unverified 02/26/19 08:51 Consultations 02/26/19 10:30 ED Decision to Admit Stat 02/26/19 11:56 Consult Cardiology Routine 02/26/19 15:37 Consult Hematology Routine Hospital Course (1) SOB (shortness of breath) on exertion: 63yo F PMH HTN, HLD, CHF, SSS s/p pacemaker placement, Anemia, GERD, hypothyroid presents with progressive dyspnea and GO. Admitted for suspected CHF exacerbation. Dyspnea secondary to Acute diastolic heart failure. -EF preserved at 50-55%. -BMP mildly elevated at 2994, -Cardiology consulted -Patient initially on IV bumex, -diurese a net of 3.3 L off of her. -transitioned to original home dosing on discharge. -Breathing better at the time of discharge. Exertional Cyanosis Has been present for some time per patient, with dyspnea and cyanosis on exertion. 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 He will refer patient to [facility] as an outpatient for further workup and continue to follow here in [facility]. Abdominal discomfort/nausea -Pt notes she gets periodic "gastritis" -Improved with GI cocktail and zofran PRN Not nauseous at time of discharge Diarrhea Patient initially with loose diarrhea, but stool were more formed on day of discharge. HTN/HLD No changes to home regimen, BP well controlled during admission Atrial fibrillation -Permanent; continue eliquis Hypothyroid -Cont synthroid AV Block/SSS s/p pacemaker -Recently interrogated, functioning well. -No abnormalities on telemetry AIDE -Cont CPAP HS Fibromyalgia No changes to home regime (2) Valvular heart disease: (3) AIDE on CPAP: (4) Hyperlipidemia: (5) Hypertension: (6) Fibromyalgia: (7) Acid reflux: (8) Hypothyroidism: Total Time Total Time Spent Total Time Spent (In Minutes): See Physician's attestation. Total Time Includes: Examination of the Patient, Discharge Planning and Communication With Other Providers Discharge Plan Discharge Items Patient Disposition: Home - Self-Care Reason For Visit: SOB, CHF Discharge Diagnosis: Hypoxemic respiratory failure CHF exacerbation Activity: Resume your previous activity Non-emergency contact: Primary Care Provider and Race Board Attendant Call non-emergency contact if: you have any medication questions and your symptoms worsen Follow-up/Referrals: Ryanne Pugh MD [Primary Care Provider] - Diet: Heart Healthy and Low Sodium (2gm) Addtl Attending Provider Instructions: Ms. Eller, It was our pleasure to treat you here at [facility] for your shortness of breath and abdominal pain. We believe that the shortness of breath may have been secondary to CHF exacerbation meaning that you had too much fluid in your blood vessels causing congestion. We have diuresed some of that fluid off of you while you've been here with us and you appear to be doing much better. Things that can help prevent these symptoms in the future would be to avoid salt (trying to stay at less than 2000 mg per day) as well as continuing to take your bumex with regular check up with your primary care physician. Due to evidence of dehydration and your diarrheal illness, I will ask that you hold your bumex for tomorrow morning and resume it the following morning. We hope that you continue to do well at home, and it was my sincere pleasure meeting you today, David Del Toro MD Pending Studies at Discharge: No Stand-Alone Forms: My [facility] Medications and DC Order Prescriptions: Continued Eliquis 5 mg tablet 5 mg PO BID RF: 0 fluoxetine [Prozac] 10 mg capsule 10 mg PO QAM RF: 0 levothyroxine [Synthroid] 137 mcg tablet 137 mcg PO QAM RF: 0 pantoprazole [Protonix] 40 mg tablet,delayed release (DR/EC) 40 mg PO QAM RF: 0 spironolactone [Aldactone] 25 mg tablet 12.5 mg PO QAM RF: 0 acetaminophen [Tylophen] 500 mg capsule 1,000 mg PO HS PRN (Reason: Pain) RF: 0 omega-3 fatty acids 1,250 mg capsule 1,250 mg PO QAM RF: 0 multivitamin tablet 1 tab PO DAILY RF: 0 CPAP Machine Misc RF: 0 baclofen 10 mg tablet 10 mg PO HS RF: 0 bumetanide 1 mg tablet 1 mg PO AMPM RF: 0 metoprolol succinate [Toprol XL] 25 mg tablet extended release 24 hr 25 mg PO QAM RF: 0 Discharge Orders: Discharge Order (Routine); Ordered 02/28/19 Ordered By: David Del Toro Admission Data Admit Date/Time: 02/26/19 10:39 Attending Provider: Yana Buenrostro Admit Provider: Osmany Cueto Primary Care Provider: Ryanne Pugh Other Providers: Osmany Cueto ; Inocente Perla ; Juan F Aldrich ; Kuldip Stanton Other Interventions: Discharge Summary Assessment (RN) Last Done: 02/28/19 17:21 DC Date/Time DO NOT enter until pt leaves facility: 02/28/19 17:30 Supervising Physician Co-Signing Physician Notes Resident Physician Supervision Note: I independently interviewed and examined the patient and verified the hyatt history and physical, reviewed labs and image studies, discussed the case with the resident Dr. Del Toro and agree with the findings and care plan. Time spent in discharge 35 min Resident Activity Tracking Resident Involvement: Resident Care Provided Care Provided: Adult Hospital Medicine
[2019-03-01] MEDS ORDERED: BUMETANIDE 1 MG TAB PO SCH (09:00)
== END 2019-02-28 17:30 | disposition home or self-care (01) | DRG 291 ==
LOC: ED 07:35 → SUATTDRO 10:39 → 2S 10:39